=== PATIENT | female | born 1950 | race Caucasian/White ===

== ENCOUNTER 2018-08-09 16:35 | Outpatient (CLI) | payer BC, MEDICARE, SELFPAY ==
--- NOTE | 2018-08-09 16:10 | DI.RAD_ITS ---
SYMPTOM/DIAGNOSIS: FEVER, COUGH, R05, R50.9 PA AND LATERAL CHEST: Comparison is made with 10/03/16. Heart size and pulmonary vasculature are within normal limits. The lungs are clear and well expanded. No effusions or pneumothoraces are identified. The bones appear intact. IMPRESSION: No acute pulmonary process.
[2018-08-09 17:09] LABS: HCT 39.1 % (36.0-46.0); HGB 12.8 g/dL (12.0-15.5); Mean Corp. HGB Concentration 32.7 g/dL (32.0-36.0); Mean Corpuscular Hemoglobin 29.4 pg (27.0-33.0); Mean Corpuscular Volume 89.7 fL (80-95); Mean Platelet Volume 9.1 fL (8.0-11.0); Platelet Count 375 x1000/uL (130-400); RBC 4.36 m/cumm (4.00-5.20); RBC Distribution Width 13.2 % (11.7-14.6); White Blood Cell Count 9.44 k/cumm (4.4-10.8)
[2018-08-09 18:31] LABS: ALT 23 U/L (12-78); AST 12 U/L (15-37); Albumin 3.2 g/dL (3.4-5.0); Alkaline Phosphatase 115 U/L (46-116); Anion Gap 7.9 mmol/L (3-11); BUN 17 mg/dL (7-18); Bilirubin, Total 0.2 mg/dL (0.2-1.0); CO2 30.1 mmol/L (21.0-32.0); CREATININE 1.46 mg/dL (0.55-1.02); Calcium 8.6 mg/dL (8.5-10.1); Chloride 101 mmol/L (98-107); Estimated GFR 35.63 (mL/min/1.73m2); Glucose 91 mg/dL (70-100); Potassium 4.3 mmol/L (3.5-5.1); Sodium 139 mmol/L (136-145)
== END 2018-08-09 16:55 ==
PROVIDERS: PCP Nurse Practitioner; Visit Provider Nurse Practitioner
DX: R50.9 Fever, unspecified (principal); R05 Cough
CPT/HCPCS: 36415; 80053; 85027; 71046

== ENCOUNTER 2018-08-27 16:15 | Outpatient (CLI) | payer BC, MEDICARE, SELFPAY ==
[2018-08-27 18:11] LABS: Anion Gap 10.2 mmol/L (3-11); BUN 14 mg/dL (7-18); CO2 28.8 mmol/L (21.0-32.0); CREATININE 0.79 mg/dL (0.55-1.02); Calcium 8.9 mg/dL (8.5-10.1); Chloride 100 mmol/L (98-107); Glucose 87 mg/dL (70-100); Potassium 4.2 mmol/L (3.5-5.1); Sodium 139 mmol/L (136-145); TSH (W/Ref FT4) 1.17 uIU/mL (0.358-3.74)
== END 2018-08-27 16:35 ==
PROVIDERS: PCP Nurse Practitioner; Visit Provider Nurse Practitioner
DX: R53.81 Other malaise (principal); R53.83 Other fatigue; R79.9 Abnormal finding of blood chemistry, unspecified
CPT/HCPCS: 36415; 80048; 84443

== ENCOUNTER 2019-03-02 11:27 | Emergency (ER) | payer BC, MEDICARE, SELFPAY ==
[2019-03-02 11:30] VITALS: BP 154/82; PULSE 72; RESP 18; TEMP 37.1; O2SAT 97
[2019-03-02] MEDS: Lidocaine/Epinephri/Tetracaine Topical Gel 3 ML (12:16)
--- NOTE | 2019-03-02 13:07 | W.ED.GENAD ---
Discharge Plan Disposition Patient Disposition: HOME Discharge Details Chief Complaint: Laceration Clinical Impression: Laceration of left index finger Primary Care Provider: Lanny Rubio ED Provider: Rashaad Nguyễn Home Meds and New Rx's Prescriptions: Continued Coral Calcium 250-200-125 mg-unit-mg capsule 2 cap PO DAILY RF: 0 cetirizine [Zyrtec] 10 MG tablet 10 mg PO q3d RF: 0 cholecalciferol (vitamin D3) 2,000 UNIT tablet 2,000 unit PO DAILY RF: 0 Discharge Instructions Instructions: Finger Laceration (ED) Additional Instructions: Keep laceration site dry for 24 hours. Observe for signs of infection as discussed including redness, fever, chills, pain, discharge. Return to the emergency department in 12 to 14 days for suture removal. Discharge Data Discharge Date/Time-TO BE ENTERED AT DEPARTURE: 03/02/19 13:27 Discharge Physician: Rashaad Nguyễn Medical Decision Making 1 mL 1% lidocaine without epi local injection left middle finger, wound cleansed then closed with three 4-0 sutures simple of interrupted dressing applied HPI This a.m., patient accidentally lacerated her left middle finger on a clean kitchen knife. Here for wound management. Minimal bleeding, no numbness, no weakness, no additional injuries. Tetanus up-to-date. General Date/Time Provider Initiated Documentation: 03/02/19 13:11. Related Data Home Medications Medication Instructions Recorded Confirmed cetirizine [Zyrtec] 10 mg PO q3d 07/16/13 03/02/19 cholecalciferol (vitamin D3) 2,000 unit PO DAILY 06/29/17 03/02/19 calcium carb-vit D3-magnesium 250 2 cap PO DAILY cap 08/09/18 03/02/19 mg-200 unit-125 mg capsule Allergies Allergy/AdvReac Type Severity Reaction Status Date / Time nickel AdvReac Severe unknown Verified 03/02/19 11:33 acetaminophen [From Percocet] AdvReac Unknown nightmares/ Verified 03/02/19 11:33 nausea epinephrine AdvReac Unknown heart Verified 03/02/19 11:33 racing/high anxiety meperidine HCl [From Demerol] AdvReac Unknown felt she Verified 03/02/19 11:33 was sinking oxycodone HCl [From Percocet] AdvReac Unknown nightmares/ Verified 03/02/19 11:33 nausea General Stated Complaint: Laceration RADHA: 4 Review of Systems Constitutional Denies chills, Denies fatigue, Denies fever(s) and Denies lethargy Eyes Denies loss of vision Musculoskeletal Denies back pain, Denies muscle weakness and Denies numbness Integumentary/Breasts Denies rash Neurologic Denies focal weakness, Denies loss of vision and Denies numbness Endocrine Denies fatigue Hematologic/Lymphatic Denies easy bruising PFSH Social History Smoking/Tobacco Use Status: Former Tobacco Use Alcohol Intake: current Alcohol Intake frequency: holidays/special occasions only Substance use type: does not use Seatbelt use: always 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 No active bleeding. Neuro General: alert, awake and oriented x3 Speech: speech normal Gait: normal gait Extrem General: normal to inspection Course Vital Signs Temperature 37.1 C 03/02/19 11:30 Pulse 72 03/02/19 11:30 Respiratory Rate 18 03/02/19 11:30 Blood Pressure 154/82 H 03/02/19 11:30 Pulse Oximetry 97 03/02/19 11:30 Temperature 37.1 C 03/02/19 11:30 Temperature Source Skin 03/02/19 11:30 Pulse 72 03/02/19 11:30 Respiratory Rate 18 03/02/19 11:30 Respiratory Effort 03/02/19 12:46 Blood Pressure 154/82 H 03/02/19 11:30 Blood Pressure Position Sitting 03/02/19 11:30 Pulse Oximetry 97 03/02/19 11:30 Oxygen Delivery Method Room Air 03/02/19 11:30 Oxygen Flow Rate 0 03/02/19 11:30 Pain Level 0 03/02/19 11:30
== END 2019-03-02 13:27 | disposition home or self-care (01) ==
PROVIDERS: Emergency Provider Physician Assistant Medical; PCP Nurse Practitioner
DX: S61.511A Laceration without foreign body of right wrist, initial encounter (principal); W26.0XXA Contact with knife, initial encounter
CPT/HCPCS: 12001

== ENCOUNTER 2019-03-14 11:55 | Emergency (ER) | payer BC, MEDICARE, SELFPAY ==
[2019-03-14 12:06] VITALS: BP 165/90; PULSE 72; RESP 18; TEMP 36; O2SAT 98
--- NOTE | 2019-03-14 12:09 | W.ED.GENAD ---
Discharge Plan Disposition Patient Disposition: HOME Condition: Improving Discharge Details Chief Complaint: SutureRem Clinical Impression: Visit for suture removal Primary Care Provider: Lanny Rubio ED Provider: Zion Layne Home Meds and New Rx's Prescriptions: Continued Coral Calcium 250-200-125 mg-unit-mg capsule 2 cap PO DAILY RF: 0 cetirizine [Zyrtec] 10 MG tablet 10 mg PO q3d RF: 0 cholecalciferol (vitamin D3) 2,000 UNIT tablet 2,000 unit PO DAILY RF: 0 Discharge Instructions Additional Instructions: Gentle soap and water cleanse once daily, pat dry and let air dry. Remove Steri-Strips in 5 to 7 days time. Return if you develop a fever, discharge from the wound, or any other acute concerns Medical Decision Making Pleasant and delightful 68-year-old female presents for removal of left long finger sutures. This was performed with out complication, Steri-Strips were placed. Patient stable for discharge to home. She understands return precautions. HPI General Mode of arrival: ambulatory. Date/Time Provider Initiated Documentation: 03/14/19 11:56. Limitations to Documentation: no limitations. Information obtained by: patient. History of Present Illness 68 year old F presents to the emergency department with the chief complaint of Suture removal, no complaint, and is localized to the left and upper extremity. Patient notes no other symptoms.. Patient did receive the following treatments prior to arrival, none Related Data Home Medications Medication Instructions Recorded Confirmed cetirizine [Zyrtec] 10 mg PO q3d 07/16/13 03/02/19 cholecalciferol (vitamin D3) 2,000 unit PO DAILY 06/29/17 03/02/19 calcium carb-vit D3-magnesium 250 2 cap PO DAILY cap 08/09/18 03/02/19 mg-200 unit-125 mg capsule Allergies Allergy/AdvReac Type Severity Reaction Status Date / Time nickel AdvReac Severe unknown Verified 03/02/19 11:33 acetaminophen [From Percocet] AdvReac Unknown nightmares/ Verified 03/02/19 11:33 nausea epinephrine AdvReac Unknown heart Verified 03/02/19 11:33 racing/high anxiety meperidine HCl [From Demerol] AdvReac Unknown felt she Verified 03/02/19 11:33 was sinking oxycodone HCl [From Percocet] AdvReac Unknown nightmares/ Verified 03/02/19 11:33 nausea General Stated Complaint: SutureRem RADHA: 5 Review of Systems Review of Systems No fever no discharge no redness PFSH Surgical History Biopsy of breast (09/26/13) Excision, Skin Mass L Femoral Hernia Repair R breast lumpectomy x2 (fibrocystic) Trigger Finger release Vaginal hysterectomy (01/04/17) Social History Smoking/Tobacco Use Status: Former Tobacco Use Alcohol Intake: current Alcohol Intake frequency: holidays/special occasions only Substance use type: does not use Seatbelt use: always 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 Pleasant, well groomed, interactive. HEAD: Normocephalic, atraumatic EXT: Full ROM, no edema, no rash. Left long finger with [address] over healing wound. Neuro: Grossly normal neurologic exam, conversant, interactive. Psych: Speech fluent, thoughts congruent, affect normal Course Respiratory Effort Non-Labored 03/14/19 12:03
== END 2019-03-14 12:14 | disposition home or self-care (01) ==
PROVIDERS: Emergency Provider Emergency Medicine; PCP Nurse Practitioner
DX: Z48.02 Encounter for removal of sutures (principal); S61.511D Laceration without foreign body of right wrist, subsequent encounter; W26.0XXD Contact with knife, subsequent encounter

== ENCOUNTER 2019-04-08 06:12 | Day surgery (SDC) | payer BC, MEDICARE, SELFPAY ==
[2019-04-08 06:15] VITALS: BP 130/69; PULSE 76; RESP 18; TEMP 36.6; O2SAT 96
[2019-04-08] MEDS: Lactated Ringers 1,000 ML 80 ML IV ×2 (06:42→07:55)
--- NOTE | 2019-04-08 07:50 | BOWEL_PTH ---
PATIENT: Richelle Huerta LOC: JOB U#:[id number] AGE/SX: 68/F ROOM: RE04/08/[address]: Azeb Ernst MD : 1950 BED: DIS: 04/08/2019 SPEC #: [id number] RECD: 04/08/19 12:40 STATUS: JOSE ARMANDO REQ #: [id number] ANTONIO: 04/08/19 07:[address]: Azeb Ernst DEPT: Surgical Specimen RECD BY: Lilly Escobar ENTERED: 04/08/19 12:40 SP TYPE: Bowel OTHR DR: Lanny Rubio APRN Tissues: 1 - BIOPSY BOWEL Procedures: GROSS AND MICRO LEVEL 4 Comments: [id number]
--- NOTE | 2019-04-08 08:06 | W.PM.DSUDISC ---
Discharge Plan Disposition Patient Disposition: HOME Condition: Good Discharge Details Attending Provider: Azeb Ernst Primary Care Provider: Lanny Rubio Home Meds and New Rx's Prescriptions: Continued cetirizine [Zyrtec] 10 MG tablet 10 mg PO q3d RF: 0 Discontinued polyethylene glycol 3350 17 gram/dose powder 238 g PO ONCE Qty: 238 RF: 0 bisacodyl 5 mg tablet,delayed release (DR/EC) 5 mg PO ONCE Qty: 4 RF: 0 Discharge Instructions Additional Instructions: Your colonoscopy showed internal hemorrhoids, which is the likely cause of bleeding. It is okay to use an OTC medication like Preparation H if they are bothersome. Mild diverticulosis was present. Make sure to take in a high fiber diet. Routine biopsies were done, my office will send a letter with results. It is anticipated they will be normal. Activity:: Activity as Tolerated Diet:: As Tolerated Discharge Orders Discharge Orders: Discharge Order (Routine); Ordered 04/08/19 Ordered By: Azeb Ernst DS: Diagnosis Discharge Diagnosis (1) Diverticulosis: Start date: 04/08/19 Start time: 08:07 Status: Acute (2) Internal hemorrhoid: Start date: 04/08/19 Start time: 08:07 Status: Acute
[2019-04-08 08:30] VITALS: BP 131/77; PULSE 76; RESP 16; TEMP 36; O2SAT 100
--- NOTE | 2019-04-08 11:12 | COLE_ITS ---
DATE OF PROCEDURE: April 08, 2019 PREOPERATIVE DIAGNOSIS: Rectal bleeding and change in bowel habits.
== END 2019-04-08 09:10 | disposition home or self-care (01) ==
PROVIDERS: PCP Nurse Practitioner; Visit Provider Surgery
PROC: 0DJD8ZZ Inspection of Lower Intestinal Tract, Via Natural or Artificial Opening Endoscopic (ICD-10-PCS; CPT 45378; principal; 2019-04-08 07:30)
DX: K62.5 Hemorrhage of anus and rectum (principal); R19.4 Change in bowel habit; K52.9 Noninfective gastroenteritis and colitis, unspecified; K57.30 Diverticulosis of large intestine without perforation or abscess without bleeding; K64.0 First degree hemorrhoids; K63.89 Other specified diseases of intestine
CPT/HCPCS: 45380; 88305

== ENCOUNTER 2019-04-09 10:20 | Outpatient (CLI) | payer BC, MEDICARE, SELFPAY ==
[2019-04-09 10:58] LABS: HCT 41.3 % (36.0-46.0); HGB 13.6 g/dL (12.0-15.5); Mean Corp. HGB Concentration 32.9 g/dL (32.0-36.0); Mean Corpuscular Hemoglobin 29.2 pg (27.0-33.0); Mean Corpuscular Volume 88.8 fL (80-95); Mean Platelet Volume 9.5 fL (8.0-11.0); Platelet Count 289 x1000/uL (130-400); RBC 4.65 m/cumm (4.00-5.20); RBC Distribution Width 13.1 % (11.7-14.6); White Blood Cell Count 3.89 k/cumm (4.4-10.8)
[2019-04-09 14:59] LABS: ALT 24 U/L (12-78); AST 12 U/L (15-37); Albumin 3.6 g/dL (3.4-5.0); Alkaline Phosphatase 80 U/L (46-116); Anion Gap 9.8 mmol/L (3-11); BUN 13 mg/dL (7-18); Bilirubin, Total 0.3 mg/dL (0.2-1.0); CO2 26.2 mmol/L (21.0-32.0); CREATININE 0.66 mg/dL (0.55-1.02); Calcium 8.5 mg/dL (8.5-10.1); Calculated LDL 156 mg/dL; Chloride 104 mmol/L (98-107); Cholesterol 231 mg/dL (50-200); Glucose 87 mg/dL (70-100); HDL Cholesterol 64 mg/dL (40-60); Potassium 4.2 mmol/L (3.5-5.1); Sodium 140 mmol/L (136-145); Total Protein 6.7 g/dL (6.4-8.2); Triglyceride 58 mg/dL (30-150)
== END 2019-04-09 10:40 ==
PROVIDERS: PCP Nurse Practitioner; Visit Provider Nurse Practitioner
DX: E78.5 Hyperlipidemia, unspecified (principal); K62.5 Hemorrhage of anus and rectum
CPT/HCPCS: 36415; 80053; 80061; 83721; 85027

== ENCOUNTER 2019-04-12 13:47 | Outpatient (CLI) | payer BC, MEDICARE, SELFPAY ==
[2019-04-15 23:14] LABS: Saccharomyces cerevisiae IgA <10.0 U; Saccharomyces cervisiae IgG 14.6 U
== END 2019-04-12 14:07 ==
PROVIDERS: PCP Nurse Practitioner; Visit Provider Surgery
DX: K62.5 Hemorrhage of anus and rectum (principal)
CPT/HCPCS: 36415; 86255; 86671

== ENCOUNTER 2020-07-03 03:28 | Outpatient (CLI) | payer BC, MEDICARE, SELFPAY ==
[2020-07-03 08:46] LABS: HCT 42.5 % (36.0-46.0); HGB 13.8 g/dL (11.2-15.7); MCH 29.4 pg (27.0-33.0); MCHC 32.5 % (32.0-36.0); MCV 90.6 fL (80-95); MPV 9.3 fL (8.0-11.0); Platelet Count 274 10^3/uL (130-400); RBC 4.69 10^6/uL (3.93-5.22); RDW-SD 42.7 fL; WBC 4.35 10^3/uL (4.4-10.8)
[2020-07-03 09:43] LABS: ALT 23 U/L (14-59); AST 14 U/L (15-37); Albumin 3.7 g/dL (3.4-5.0); Alkaline Phosphatase 85 U/L (46-116); Anion Gap 6.6 mmol/L (3-11); BUN 14 mg/dL (7-18); Bilirubin, Total 0.3 mg/dL (0.2-1.0); CO2 32.4 mmol/L (21.0-32.0); CREATININE 0.73 mg/dL (0.55-1.02); Calcium 8.7 mg/dL (8.5-10.1); Calculated LDL 189 mg/dL (<100); Chloride 104 mmol/L (98-107); Cholesterol 275 mg/dL (<200); HDL Cholesterol 73 mg/dL (40-60); Potassium 4.9 mmol/L (3.5-5.1); Sodium 143 mmol/L (136-145); Total Protein 6.8 g/dL (6.4-8.2); Triglyceride 66 mg/dL (<150)
[2020-07-03 09:50] LABS: Glucose 92 mg/dL (74-106)
== END 2020-07-03 03:48 ==
PROVIDERS: PCP Nurse Practitioner; Visit Provider Nurse Practitioner
DX: E78.5 Hyperlipidemia, unspecified (principal); R10.32 Left lower quadrant pain; G89.29 Other chronic pain
CPT/HCPCS: 36415; 80053; 80061; 85027

== ENCOUNTER 2020-09-04 01:32 | Outpatient (CLI) | payer OTHER, SELFPAY ==
--- NOTE | 2020-09-04 07:30 | DI.RAD_ITS ---
EXAM: XR HIP LT COMPLETE AP PELVIS INDICATION: R/o fx, LT BUTTOCK PAIN, CHRONIC GROIN PAIN, M79.18,R10.32. COMPARISON: CR XR CHEST 2V PA LATERAL from 08/09/2018 TECHNIQUE: 2D digital imaging was performed. FINDINGS: The hip joint spaces are well maintained. There is bilateral mild to moderate acetabular spurring, l eft greater than right. There is minimal spurring at the margin of the left femoral head. There are mild degenerative changes of the sacroiliac joints. IMPRESSION: Mild to moderate degenerative changes. DATA REPOSITORY: RADIATION DOSE DELIVERED:
== END 2020-09-04 01:52 ==
PROVIDERS: PCP Nurse Practitioner; Visit Provider Nurse Practitioner Family
DX: M79.18 Myalgia, other site (principal); R10.32 Left lower quadrant pain; G89.29 Other chronic pain; M16.12 Unilateral primary osteoarthritis, left hip; M46.1 Sacroiliitis, not elsewhere classified
CPT/HCPCS: 73502

== ENCOUNTER 2020-11-18 01:11 | Outpatient (CLI) | payer OTHER, SELFPAY ==
--- NOTE | 2020-11-18 14:30 | DI.MRI_ITS ---
EXAM: MR LUMBAR SPINE WO CLINICAL HISTORY: L leg gives out, buttock pain, LLQ PAIN,groin pain,M79.18,R10.32. TECHNIQUE: Multiplanar multisequence MRI of the Lumbar spine was performed. COMPARISON: CR XR HIP LT COMPLETE AP PELVIS from 09/04/2020 FINDINGS: Five lumbar vertebrae are presumed. Conus medullaris is at normal level. There is no evidence of conus mass nor subjacent clumping of in trathecal nerve roots to suggest arachnoiditis. The distal thecal sac appears unremarkable.There is no evidence of Tarlov intrasacral cysts nor other significant findings within the sacral canal Bones:There are no fractures nor ominous osseous lesions in the lumbar vertebral bodies and visualize d sacrum. With respect to the individual levels... We note that the disc material at each level in the lumbar spine is remarkably well preserved in heig ht and hydration signal for this patient's age group. T11-T12: There are Modic type 1 sub endplate marrow edema changes anteriorly at this level. There is mild annular bulging but no distinct focal disc herniation at this level. No evidence of central ca nal stenosis nor significant foraminal stenosis at this level and no facet arthropathy. T12-L1: Unremarkable L1-2: Normal disc height and signal. No disc herniation nor central canal stenosis.No foraminal steno sis L2-3: Normal disc height. No disc herniation nor central canal stenosis.No foraminal stenosis.No face t arthropathy. L3-4: Normal disc height. No disc herniation or central canal stenosis.No foraminal stenosis.No face t arthropathy. L4-5: Normal disc height and signal. No disc herniation or central canal stenosis. No foraminal anand nosis. No significant facet arthropathy. L5-S1: Normal disc height and signal. No disc herniation or central spinal canal stenosis nor forami nal stenosis. However, there is some degenerative change noted in the right facet joint at this leve l. Left facet joint appears relatively unremarkable. Soft tissues: paraspinal soft tissues appear unremarkable.There is a 5 millimeter cyst incidentally noted in the right kidney. IMPRESSION: 1. There is remarkable preservation of disc height and signal for this age group. 2. There is no significant disc herniation, central spinal canal stenosis, nor foraminal stenosis. N o listhesis. 3. There are Modic type 1 sub endplate marrow edema changes at the anterior aspect of the T11-T12 dis c space with anterior osseous lipping at this level. However, there is no disc herniation at this le sly evident nor canal stenosis. 4. There is some degenerative change in the right facet joint at L5-S1 level. Only mild degenerativ e change in the left facet joint at this level. There is no facet arthropathy at the other levels. DATA REPOSITORY:
== END 2020-11-18 01:12 ==
LOC: DI 01:12
PROVIDERS: PCP Nurse Practitioner; Visit Provider Nurse Practitioner
DX: R10.32 Left lower quadrant pain (principal); M79.18 Myalgia, other site; M48.061 Spinal stenosis, lumbar region without neurogenic claudication; M43.07 Spondylolysis, lumbosacral region
CPT/HCPCS: 72148

== ENCOUNTER → 2020-12-08 01:14 | Outpatient (CLI) | payer OTHER, BC, MEDICARE, SELFPAY ==
--- NOTE | 2020-12-08 08:55 | DI.MRI_ITS ---
EXAM: MR LOWER JOINT LT WO CLINICAL HISTORY: PAIN LT HIP,GROIN,BUTTOCK,M25.552,R10.32,M79.18. TECHNIQUE: Multiplanar multisequence MRI was performed. COMPARISON: CR XR HIP LT COMPLETE AP PELVIS from 09/04/2020 FINDINGS: MR examination of the hip was performed according to the usual protocol except for noted large field of view requested. Large [id number]-jm-esyc does decrease resolution somewhat. No significant abnormality of the intrapelvic soft tissues, visualized bowel and urinary bladder appe ar intact. No gross adenopathy in the region surveyed. Right hip shows normal bony and soft tissue signal, no joint effusion, no ligamentous or tendinous ab normality. On the left, there is a small hip joint effusion. The labrum appears grossly unremarkable. Femoral head shows minimally abnormal signal in the subchondral portions of the bone on the T2 fat sat images . There is abnormal signal also seen in the superior acetabulum with areas of apparent cyst formatio n. Small ganglion cyst may also be present anteriorly. No gross ligamentous or tendinous abnormalit y seen. The bony cortex is not ideally visualized, cortical disruption of the superior acetabulum not exclude d, mass lesion not excluded. Additional correlation with CT of the hip suggested. IMPRESSION: Somewhat suboptimal image quality limits this examination, there are bony changes involving superior acetabulum and femoral head suggesting degenerative changes with some subchondral cyst formation. Fr acture or mass not entirely excluded on the basis of this examination, correlation with left hip CT r ecommended. DATA REPOSITORY:
== END ==
PROVIDERS: PCP Nurse Practitioner; Visit Provider Nurse Practitioner
DX: M25.552 Pain in left hip (principal); R10.32 Left lower quadrant pain; M79.18 Myalgia, other site
CPT/HCPCS: 73721

== ENCOUNTER 2021-05-21 10:34 | Outpatient (CLI) | payer BC, MEDICARE, SELFPAY ==
--- NOTE | 2021-05-21 10:30 | DI.RAD_ITS ---
Exam(s) XR SHOULDER LT COMPLETE 2+V EXAM: XR SHOULDER LT COMPLETE 2+V CLINICAL HISTORY: s/p fall TECHNIQUE: COMPARISON: No exams were available for comparison FINDINGS: Two views were obtained. There appears to be mild narrowing of the cartilaginous joint space of the glenohumeral joint. There is mild marginal osteophyte formation of the glenoid and humeral head and there are moderate hypertrophic degenerative changes at the AC joint as well. No other significant a bnormality seen. IMPRESSION: RADIATION DOSE DELIVERED: Total DLP
== END 2021-05-21 10:35 | disposition home or self-care (01) ==
LOC: DIORS 10:35
PROVIDERS: PCP Nurse Practitioner; Referring Provider Nurse Practitioner; Visit Provider Physician Assistant Surgical
DX: M25.512 Pain in left shoulder (principal); W19.XXXA Unspecified fall, initial encounter; M19.012 Primary osteoarthritis, left shoulder
CPT/HCPCS: 73030

== ENCOUNTER 2021-07-16 02:07 | Outpatient (CLI) | payer BC, MEDICARE, SELFPAY ==
[2021-07-16 08:00] LABS: HCT 41.2 % (36.0-46.0); HGB 13.2 g/dL (11.2-15.7); MCH 29.3 pg (27.0-33.0); MCV 91.6 fL (80-95); MPV 9.2 fL (8.0-11.0); Platelet Count 300 10^3/uL (130-400); RDW 12.7 % (11.7-14.6); RDW-SD 42.4 fL; WBC 4.41 10^3/uL (4.4-10.8)
[2021-07-16 09:10] LABS: ALT 23 U/L (14-59); AST 12 U/L (15-37); Alkaline Phosphatase 80 U/L (46-116); Anion Gap 6.1 mmol/L (3-11); BUN 22 mg/dL (7-18); Bilirubin, Total 0.3 mg/dL (0.2-1.0); CO2 31.9 mmol/L (21.0-32.0); CREATININE 0.8 mg/dL (0.55-1.02); Calcium 8.9 mg/dL (8.5-10.1); Calculated LDL 181 mg/dL (<100); Chloride 103 mmol/L (98-107); Cholesterol 263 mg/dL (<200); Glucose 90 mg/dL (74-106); HDL Cholesterol 68 mg/dL (40-60); Potassium 4.9 mmol/L (3.5-5.1); Sodium 141 mmol/L (136-145); Triglyceride 71 mg/dL (<150)
[2021-07-16 09:17] LABS: Albumin 3.7 g/dL (3.4-5.0)
== END 2021-07-16 02:08 | disposition home or self-care (01) ==
LOC: LBO 02:07
PROVIDERS: PCP Nurse Practitioner; Visit Provider Nurse Practitioner
DX: E78.5 Hyperlipidemia, unspecified (principal)
CPT/HCPCS: 36415; 80053; 80061; 85027

== ENCOUNTER 2021-09-06 01:32 | Outpatient (CLI) | payer MEDICARE, OTHER, SELFPAY ==
--- NOTE | 2021-09-06 08:45 | DI.MRI_ITS ---
Exam(s) MR UPPER JOINT LT WO EXAM: MR UPPER JOINT LT WO CLINICAL HISTORY: LT SHOULDER PAIN, INJURY,M25.512 TECHNIQUE: Multiplanar multisequence MRI of the shoulder was performed. COMPARISON: CR XR SHOULDER LT COMPLETE 2+V from 05/21/2021 FINDINGS: MARROW:There is no evidence of fracture, Hill-Sachs deformity, bony Bankart lesion, nor ominous osseo us lesions. ROTATOR CUFF MECHANISM: AC JOINT/ACROMIUM: Minimal degenerative changes at the AC joint. No downgoing osteophytes. No promi nent impingement at this level. The undersurface of the acromion is flat. There is no undersurface impingement hook.. There is no evidence of os acromiale. Supraspinatus: Tendinitis signal but no full-thickness tear. No retraction. No muscle atrophy. Infraspinatus: Intact. No evidence of tear nor muscle atrophy. Teres Minor: Intact. No evidence of tear nor muscle atrophy. Subscapularis/anterior cuff: Intact. No tear nor atrophy. BICEPS TENDON: Exhibits normal position within the intertubercular groove but some fluid within the t endon sheath LABRUM: Mild increased signal is seen in the superior labrum posterior to the biceps insertion site. May indicate an element of SLAP tear although there is no invagination of fluid signal between the l abrum and osseous glenoid. There is also increased intrasubstance signal within the posterior labrum . Also within the anterior labrum. GLENOHUMERAL JOINT: Moderate-sized joint effusion with synovial thickening. No loose intra-articular body evident. Osteophyte on the inferior articular surface of the humeral head. No degenerative cy sts in the osseous glenoid but there is some mild thinning of the cartilage. No large chondral defec ts. No evidence of capsular tear. The inferior glenohumeral ligament is intact. QUADRILATERAL SPACE: No evidence of mass in the region of the axillary nerve and dorsal circumflex hu meral vessels. Visualized triceps muscle at this level appears unremarkable. IMPRESSION: 1. There is mild increased signal evident within the supraspinatus tendon but no tear nor muscle atro phy. There is a tiny amount of fluid in the subacromial bursa, probably an element of bursitis. Oth er 3 muscles of the rotator cuff mechanism appear unremarkable. There is no evidence of muscle atrop hy. 2. Moderate degenerative changes in the glenohumeral joint. Moderate-sized joint effusion with some synovial thickening. No obvious loose intra-articular bodies. 3. Subtle labral tearing evident. Biceps tendon is intact and nondisplaced. Mild amount of fluid in its tendon sheath is most probably continuity of the glenohumeral joint effusion. DATA REPOSITORY:
== END 2021-09-06 01:52 ==
PROVIDERS: PCP Nurse Practitioner; Visit Provider Student in an Organized Health Care Education/Training Program
DX: M25.512 Pain in left shoulder (principal); M19.012 Primary osteoarthritis, left shoulder; M25.412 Effusion, left shoulder
CPT/HCPCS: 73221

== ENCOUNTER → 2021-10-11 13:48 | Outpatient (BNVA) | payer MEDICARE, OTHER, SELFPAY | PROVIDERS: PCP Nurse Practitioner; Referring Provider Nurse Practitioner; Visit Provider Student in an Organized Health Care Education/Training Program | DX: S46.012D Strain of muscle(s) and tendon(s) of the rotator cuff of left shoulder, subsequent encounter (principal); M16.12 Unilateral primary osteoarthritis, left hip; X58.XXXD Exposure to other specified factors, subsequent encounter | CPT/HCPCS: 20610; 99213; J1040 ==

== ENCOUNTER → 2021-11-08 12:55 | Outpatient (BNVA) | payer MEDICARE, OTHER, SELFPAY | PROVIDERS: PCP Nurse Practitioner; Visit Provider Student in an Organized Health Care Education/Training Program | DX: M16.12 Unilateral primary osteoarthritis, left hip (principal); W19.XXXA Unspecified fall, initial encounter | CPT/HCPCS: 99214 ==

== ENCOUNTER 2021-12-09 14:28 | Outpatient (CLI) | payer MEDICARE, OTHER, SELFPAY ==
--- NOTE | 2021-12-09 14:15 | DI.RAD_ITS ---
Exam(s) XR HIP LT COMPLETE AP PELVIS EXAM: XR HIP LT COMPLETE AP PELVIS CLINICAL HISTORY: preop. TECHNIQUE: 2D digital imaging was performed. COMPARISON: CR XR HIP LT COMPLETE AP PELVIS from 09/04/2020 FINDINGS: Two views There is no evidence of pelvic nor hip fracture. There is mild left hip joint space narrowing. Righ t hip joint space appears unremarkable. On the additional lateral view of the left hip there is a ti ny femoral head spur again noted, unchanged. Bone density is normal. No osseous lesions. Visualize d sacroiliac joints unremarkable. IMPRESSION: DATA REPOSITORY: RADIATION DOSE DELIVERED:
== END 2021-12-09 14:29 | disposition home or self-care (01) ==
LOC: DIORS 14:28
PROVIDERS: PCP Nurse Practitioner; Referring Provider Nurse Practitioner; Visit Provider Physician Assistant Surgical
DX: M16.12 Unilateral primary osteoarthritis, left hip (principal); M76.892 Other specified enthesopathies of left lower limb, excluding foot; Z01.818 Encounter for other preprocedural examination
CPT/HCPCS: 73502

== ENCOUNTER 2021-12-20 03:18 | Outpatient (CLI) | payer MEDICARE, OTHER, SELFPAY ==
[2021-12-20 10:14] LABS: HCT 42.4 % (36.0-46.0); HGB 13.5 g/dL (11.2-15.7); MCH 28.9 pg (27.0-33.0); MCHC 31.8 % (32.0-36.0); MCV 90.8 fL (80-95); MPV 9.1 fL (8.0-11.0); Platelet Count 304 10^3/uL (130-400); RBC 4.67 10^6/uL (3.93-5.22); RDW 13.3 % (11.7-14.6); RDW-SD 44.6 fL; WBC 4.74 10^3/uL (4.4-10.8)
[2021-12-20 12:10] LABS: Anion Gap 8.3 mmol/L (3-11); BUN 17 mg/dL (7-18); CO2 29.7 mmol/L (21.0-32.0); CREATININE 0.8 mg/dL (0.55-1.02); Calcium 8.8 mg/dL (8.5-10.1); Chloride 104 mmol/L (98-107); Glucose 76 mg/dL (74-106); Sodium 142 mmol/L (136-145)
[2021-12-20 12:40] LABS: Source Nasal/Nares
[2021-12-20 16:06] LABS: COVID-19 PCR Negative (Negative)
== END 2021-12-20 03:19 | disposition home or self-care (01) ==
LOC: LBO 03:18
PROVIDERS: PCP Nurse Practitioner; Visit Provider Student in an Organized Health Care Education/Training Program
DX: M25.552 Pain in left hip (principal); M16.12 Unilateral primary osteoarthritis, left hip; Z20.822 Contact with and (suspected) exposure to COVID-19; Z01.818 Encounter for other preprocedural examination; Z01.812 Encounter for preprocedural laboratory examination
CPT/HCPCS: 36415; 80048; 85027; 86850; 86900; 86901; 87635; U0005

== ENCOUNTER 2021-12-21 05:59 | Day surgery (SDC) | payer MEDICARE, OTHER, SELFPAY ==
[2021-12-21] VITALS (8 sets, daily range): BP systolic 125–157; BP diastolic 61–80; PULSE 52–75; RESP 12–17; TEMP 36.3–37.1; O2SAT 93–100; BMI 28.5
--- NOTE | 2021-12-21 06:26 | W.PM.DSUDISC ---
Discharge Plan Disposition Patient Disposition: HOME Condition: Stable Discharge Details Reason For Visit: Left RISSA Attending Provider: Casey Huerta Primary Care Provider: Lanny Rubio Home Meds and New Rx's Prescriptions: New aspirin 81 mg tablet,delayed release (DR/EC) 81 mg PO BID Qty: 60 0RF ibuprofen 600 mg tablet 600 mg PO TID Qty: 90 0RF acetaminophen 500 mg capsule 1,000 mg PO Q8H PRN PRNQty: 90 0RF tramadol 50 mg tablet 50 mg PO Q6H PRNQty: 4 0RF pantoprazole [Protonix] 40 mg tablet,delayed release (DR/EC) 40 mg PO DAILY Qty: 30 0RF Continued cholecalciferol (vitamin D3) 50 mcg (2,000 unit) capsule 50 mcg PO DAILY 0RF ascorbic acid (vitamin C) 500 mg capsule, extended release 500 mg PO DAILY 0RF omega-3 fatty acids [Fish Oil Concentrate] 1,000 mg capsule 1,000 mg PO DAILY 0RF turmeric root extract 500 mg capsule 500 mg PO DAILY 0RF Discontinued Tylenol Extra Strength 500 mg powder in packet 500 mg PO BID PRN0RF ibuprofen 200 mg capsule 400 mg PO ONCE PRN0RF Discharge Instructions Additional Instructions: Total Hip Discharge Instructions Activity: The most important activity is to walk. You should try to take short walks a few times a day. You have no restrictions on movement or positioning, but do not try to force what you do. You will find some stiffness and weakness with hip flexion (lifting your knee). Do not try to strengthen this too early, continue to practice walking and stairs and this will come. - Outpatient physical therapy can be helpful to help return you to a normal gait and improve your flexibility and strength. This can start around 2 weeks. For some patients, it?s not necessary. Usually this is determined at the time of discharge or at the first post-operative visit. - You should wear the MICHAEL hose on both legs for 2 weeks. Dressing: Keep the surgical dressing in place for at least one week. After the first week it may be removed and replace with light gauze and tape or nothing. It may get wet after 3 days but avoid soaking the dressing. If it gets wet, just lightly pat dry. It is important to always keep some gauze between skin folds, especially when you are sitting. Spend some time with the wound exposed when you are lying flat as the incision does wrinkle onto itself. Medications: - You should take Tylenol and an anti-inflammatory, ibuprofen, as your primary pain control medications. - You have been prescribed a stronger pain medication, 4-50 mg tablets of tramadol, for breakthrough pain, take as needed. As discussed at your preoperative visit, if you run out and require more for pain control, please do not hesitate to contact the office for a refill. - You have also been prescribed a stomach acid reduction agent, Pantoprozole, to help reduce stomach acid and reflux. - You will be taking Aspirin 81mg twice a day for DVT prevention unless instructed otherwise. - If you have constipation you should take Colace or Miralax (both [id number]). It takes most people 3-4 days to have a bowel movement. Follow-up: 2 weeks If you have any acute concerns or questions, please do not hesitate to contact the office at [phone]. You may contact Dr. Huerta with any questions after hours through the hospital at [phone] or on his cell phone at [phone]. Referrals: Casey Huerta MD [ [facility] STAFF PHYSICIAN] - Equipment/Supplies: Walker Activity:: Activity as Tolerated Remove Dressings/Wound Care:: Do Not Remove Shower/Bathe:: 72 hours Diet:: As Tolerated Discharge Orders Discharge Orders: Discharge Order (Routine); Ordered 12/21/21 Ordered By: Monica Fried DS: Diagnosis Discharge Diagnosis (1) Degenerative joint disease of left hip: Status: Acute
--- NOTE | 2021-12-21 06:56 | W.ANESPRE ---
General Info Date of Service Date Performed: 12/21/21 Height: 5 ft 2 in Weight: 70.8 kg Body Mass Index (BMI): 28.5 Surgical Procedure: Operation Date: 12/21/21 07:50 Proposed Procedure Side Surgeon p Hip Total Hip Anterior Left Casey Huerta MD Meds Allergies and Home Medications Allergies Allergy/AdvReac Type Severity Reaction Status Date / Time scopolamine Allergy Verified 12/21/21 06:23 nickel AdvReac Severe unknown Verified 12/20/21 14:25 epinephrine AdvReac Unknown heart Verified 12/20/21 14:25 racing/high anxiety meperidine HCl [From Demerol] AdvReac Unknown felt she Verified 12/20/21 14:25 was sinking oxycodone HCl [From Percocet] AdvReac Unknown nightmares/ Verified 12/20/21 14:25 nausea Home Medication Medication Instructions Recorded ascorbic acid (vitamin C) 500 mg 500 mg PO DAILY 04/21/20 capsule,extended release cholecalciferol (vitamin D3) 50 50 mcg PO DAILY 04/21/20 mcg (2,000 unit) capsule omega-3 fatty acids 1,000 mg 1,000 mg PO DAILY 04/21/20 capsule (Fish Oil Concentrate) turmeric root extract 500 mg 500 mg PO DAILY 10/02/20 capsule acetaminophen 500 mg capsule 1,000 mg PO Q8H PRN PRN #90 cap 12/21/21 aspirin 81 mg tablet,delayed 81 mg PO BID #60 tab 12/21/21 release ibuprofen 600 mg tablet 600 mg PO TID #90 tab 12/21/21 pantoprazole 40 mg tablet,delayed 40 mg PO DAILY #30 tab 12/21/21 release (Protonix) tramadol 50 mg tablet 50 mg PO Q6H PRN #4 tab 12/21/21 Current Visit Medications: Current Medications Generic Name Dose Route Start Last Admin Trade Name Freq PRN Reason Stop Dose Admin Acetaminophen 1,000 mg 12/21/21 06:00 Acetaminophen 500 Mg Tab PO 12/21/21 16:00 PREOP AMBREEN Acetaminophen 1,000 mg 12/21/21 08:30 Acetaminophen 500 Mg Tab PO TID AMBREEN Aspirin 81 mg 12/21/21 08:30 Aspirin E.C. 81 Mg Tabec PO BID AMBREEN Celecoxib 400 mg 12/21/21 06:00 Celecoxib 200 Mg Cap PO 12/21/21 16:00 PREOP ABMREEN Celecoxib 200 mg 12/21/21 08:30 Celecoxib 200 Mg Cap PO BID AMBREEN Docusate Sodium 100 mg 12/21/21 06:24 Docusate Sodium 100 Mg Cap PO BID PRN PRN Constipation Hydromorphone HCl 0.5 mg 12/21/21 06:24 Hydromorphone 2 Mg/Ml Vial IVP Q2H PRN PRN Tranexamic Acid 1,000 mg/ 60 mls @ 360 mls/hr 12/21/21 06:00 Sodium Chloride IV 12/21/21 16:00 PREOP AMBREEN Ringer's Solution 1,000 mls @ 80 mls/hr 12/21/21 06:00 IV 12/23/21 23:59 INFUSION AMBREEN Cefazolin Sodium/Dextrose 2 gm in 50 mls @ 100 mls/hr 12/21/21 06:00 Ancef Duplex IVPB 12/21/21 23:59 PREOP AMBREEN Cefazolin Sodium/Dextrose 1 gm in 50 mls @ 100 mls/hr 12/21/21 16:00 Ancef Duplex IVPB 12/22/21 08:29 Q8H AMBREEN IV Miscellaneous Supplies 1 each 12/21/21 06:00 Iv Access IV 12/23/21 23:59 DIRECTED AMBREEN Ondansetron HCl 4 mg 12/21/21 06:24 Ondansetron 4 Mg/2 Ml Vial IVP Q6H PRN PRN Nausea Pantoprazole Sodium 40 mg 12/21/21 07:30 Pantoprazole 40 Mg Tabcr PO DAILY@0730 AMBREEN Sodium Chloride 0 ml 12/21/21 06:00 Normal Saline Flush 10 Ml Syr IV 12/23/21 23:59 PRN PRN Sodium Chloride 0 ml 12/21/21 06:00 Normal Saline 10 Ml Vial IJ 12/23/21 23:59 DIRECTED PRN Sterile Water 0 ml 12/21/21 06:00 Water,Injection,Sterile 10 Ml Vial IJ 12/23/21 23:59 DIRECTED PRN Tramadol HCl 50 mg 12/21/21 06:24 Tramadol 50 Mg Tab PO Q4H PRN PRN Pain PFSH Active Problems Active Problems: Problem Status Onset Code Cystocele 07/16/13 Fibrocystic disease of breast 07/16/13 N60.19 History of tobacco use 07/16/13 Z87.891 Herpes simplex 07/22/13 B00.9 Hyperlipidemia 07/16/13 E78.5 Abnormal mammography 10/07/13 R92.8 Osteoporosis 09/20/13 M81.0 Supraventricular tachycardia 09/19/13 I47.1 Vitamin D deficiency 07/16/13 E55.9 Diverticulosis K57.90 Internal hemorrhoid K64.8 History of uterine prolapse 04/24/18 Z87.42 Medicare annual wellness visit, subsequent Z00.00 Left groin pain R10.32 Statin declined Z53.20 Medicare annual wellness visit, subsequent Z00.00 Urinary symptom or sign R39.9 Chronic groin pain R10.30, G89.29 Elevated blood pressure reading without diagnosis of hypertension R03.0 Left buttock pain M79.18 Left shoulder pain M25.512 Left groin pain R10.32 Left hip pain M25.552 Abnormal MRI, pelvis R93.5 Left buttock pain M79.18 Left shoulder pain M25.512 Hypertension I10 Degenerative joint disease of left hip M16.12 Traumatic rotator cuff tear S46.019A Partial tear of left rotator cuff M75.112 Medical History Medical History (Updated 12/21/21 @ 06:22 by Scotty Evans) Diverticulosis 04/08/19 Dr Azeb Ernst, [facility], [place], repeat 10 years Hemorrhoids Pericardial effusion Medical History Comments:: Pt. stated [place] [facility] [place] moderate pericardial effusion was detected Nothing was ever done about it per pt. (Note [place] [facility] [place]est[place] Procedural Note) Surgical History Surgical History (Updated 12/21/21 @ 06:20 by Scotty Evans) Biopsy of breast (09/26/13) US guided biopsy L breast [facility] [place]cision, Skin Mass head & leg, benign Femoral hernia of left side History of colonoscopy Done 04/08/19 L Femoral Hernia Repair 1995, [facility] [place], [place] R breast lumpectomy x2 (fibrocystic) 1981, [facility] [place], [place] Trigger Finger release 04/2012, R 3rd digit Vaginal hysterectomy (01/04/17[place] [facility] [place] Verdu[place] Bilateral uterosacral ligament suspension/ ant/postrior colporrhaphy, mid-urethral sling Tobacco Smoking/Tobacco Use Status: Former Tobacco Use Alcohol Alcohol Intake: current Alcohol intake frequency: a few times a week Alcohol type: wine Substance Use Substance use: Never Substance use type: does not use Vital Signs and Lab Results Vital Signs Most Recent Vital Signs in EMR: Most Recent Vital Signs Temp Pulse Resp BP Pulse Ox 37.1 C 74 16 139/75 97 12/21/21 06:25 12/21/21 06:25 12/21/21 06:25 12/21/21 06:25 12/21/21 06:25 Lab Results Blood Type / Crossmatch: Patient ABO/Rh O Positive 12/20/21 Antibody Screen NEGATIVE 12/20/21 Complete Blood Count: White Blood Count 4.74 10^3/uL (4.4-10.8) 12/20/21 10:06 12/20/21 Red Blood Count 4.67 10^6/uL (3.93-5.22) 12/20/21 10:06 12/20/21 Hemoglobin 13.5 g/dL (11.2-15.7) 12/20/21 10:06 12/20/21 Hematocrit 42.4 % (36.0-46.0) 12/20/21 10:06 12/20/21 Platelet Count 304 10^3/uL (130-400) 12/20/21 10:06 12/20/21 Complete Metabolic Panel: Sodium Level 142 mmol/L (136-145) 12/20/21 10:06 12/20/21 Potassium Level 4.0 mmol/L (3.5-5.1) 12/20/21 10:06 12/20/21 Chloride Level 104 mmol/L (98-107) 12/20/21 10:06 12/20/21 Carbon Dioxide Level 29.7 mmol/L (21.0-32.0) 12/20/21 10:06 12/20/21 Blood Urea Nitrogen 17 mg/dL (7-18) 12/20/21 10:06 12/20/21 Creatinine 0.8 mg/dL (0.55-1.02) 12/20/21 10:06 12/20/21 Estimated GFR/1.73 m2 >= 60.00 (mL/min/1.73m2) 12/20/21 10:06 12/20/21 Calcium Level 8.8 mg/dL (8.5-10.1) 12/20/21 10:06 12/20/21 Glucose Level 76 mg/dL (74-106) 12/20/21 10:06 12/20/21 Liver Function Panel: No Data to Display Coagulation Panel: No Data to Display Cardiac Panel: No Data to Display Arterial Blood Gas: No Data to Display Venous Blood Gas: No Data to Display Pancreas Panel: No Data to Display Thyroid Panel: No Data to Display Infectious Disease: Coronavirus (COVID-19)(PCR) Negative (Negative) 12/20/21 10:19 12/20/21 Coronavirus 2019 Source Nasal/Nares 12/20/21 10:19 12/20/21 Blood Cultures: No Data to Display Toxicology Panel: No Data to Display Anesthesia Assessment and Plan Anesthesia History Personal History: Delayed Emergence Family History: No Family History of Anesthesia Complications Exercise Tolerance Exercise Tolerance: Metabolic Equivalents>4 Pertinent Negatives Pertinent Negatives: No Symptoms of GERD, No Major Cardiovascular Symptoms or Complaints, No Major Pulmonary Symptoms or Complaints and No History of CVA/TIA Cardiac & Pulmonary Exam Cardiac Exam: Normal S1/S2 Heart Sounds Pulmonary Exam: Clear Bilateral Breath Sounds Implantable Cardiac Device Does patient have a Pacemaker or an ICD?: No Airway Exam Known Difficult Airway: No Mallampati Class: 1 Mouth Opening: Normal (> 3cm) Thyromental Distance: Greater than 3 cm Neck Range of Motion: Full ROM Neck Circumference: Normal Teeth Condition: Normal Dentition Airway Comments: Broken tooth top left ASA Classification ASA Score: ASA 2 Emergency Case?: No NPO Status NPO Status: NPO Clears >2 hours, Solids >8 hours Anesthesia Plan Resuscitation Status: Full Code Anesthesia Technique: Spinal Anesthesia Airway Planned: Natural Airway Monitors Used: Standard Monitors
[2021-12-21] MEDS: Acetaminophen 500 MG TAB 1000 MG PO (07:02)
[2021-12-21] MEDS: Celecoxib 200 MG CAP 400 MG PO (07:02)
[2021-12-21] MEDS: Lactated Ringers 1,000 ML 80 ML IV (07:12)
[2021-12-21] MEDS: ceFAZolin 2 GM/50 ML BAG IVPB (07:52)
[2021-12-21] MEDS: Bupivacaine 0.25% Pres-Free 30 ML VIAL (08:09)
[2021-12-21] MEDS: Ketorolac 30 MG/ML VIAL (08:09)
--- NOTE | 2021-12-21 08:53 | DI.RAD_ITS ---
Exam(s) XR HIP LT IN OR EXAM: XR HIP LT IN OR CLINICAL HISTORY: Degenerative joint disease of left hip TECHNIQUE: 2D and realtime digital imaging was performed. CONTRAST MATERIAL: Refer to procedure report. COMPARISON: No exams were available for comparison FINDINGS: Fluoroscopy was provided for Dr. Huerta during the performance of a left hip replacement. Please refer to the procedure report for complete details. Ka,r=2.884 mGy IMPRESSION: RADIATION DOSE DELIVERED:
--- NOTE | 2021-12-21 09:00 | ROE_ITS ---
Date of service: 12/21/21 Time of Service: 09:00 Operative Note Operative Note DATE OF PROCEDURE: 12/21/21 PRE-OP DIAGNOSIS: Left Hip Osteoarthritis POST-OP DIAGNOSIS: same PROCEDURE: Left Anterior Total Hip Arthroplasty with Intraoperative Navigation SURGEON: Casey Huerta HOUSING QUALITY STANDARD INSPECTOR: Monica Fried ANESTHESIA TYPE: Spinal Refer to Anesthesia Record ESTIMATED BLOOD LOSS: 100 PATHOLOGY: none sent COMPLICATIONS: None Patient was transported to: PACU Patient's condition: stable Implants: 1. Depuy [place] Acetabular Component, 50mm 2. Depuy Acetabular Liner, [id number] 3. Depuy Corail Standard 125 degree Collared Femoral Stem, Size 11 4. Depuy Altrx Ceramic Femoral Head, Size 32+5mm Indications: I have seen Richelle in clinic for symptoms of hip arthritis, confirmed with radiographic findings. She has exhausted nonoperative methods and was having significant limitations in daily function and desired better function and less pain. I discussed the technical details of a hip replacement. I explained the risks of the procedure to include, but not limited to, bleeding, infection, pain, stiffness, fracture, damage to nerves and vessels, damage to muscles and tendons, loosening, instability, leg length inequality, need for repeat procedure, blood clot and cardiopulmonary demise. Despite these risks, Richelle elected to proceed. Findings: There was significant signs of arthritis throughout the hip with large areas of the weight-bearing femoral head with cartilage loss Procedure Description: Richelle was greeted in the preoperative holding area where the correct side was identified and marked. The consent was reviewed with the patient and signed. The history and physical was updated. All questions were answered. She was taken back to the operating room. A spinal anesthestic was then administered. The feet were wrapped with cast padding and Coban and then placed into the boot liners and then into the boots. Care was taken to protect the skin and make sure the heels were fully down and the boots were stable. The patient was then positioned onto the HANA table. Both legs were held in a neutral position. SCDs were applied. The patient was then slid down onto a peroneal post. Prophylactic antibiotics in the form of Cefazolin were administered. 1g of Tranxemic Acid was given intravenously within 30 minutes of incision. The left leg was then prepped with Chloraprep and draped in a standard fashion. A second prep with Chloraprep was performed prior to placement of a shower-curtain type drape with Iodine impregnated skin p rotection. A timeout to confirm correct identity, side and site, procedure, allergies, anesthesia, and medical concerns was performed. An obliquely oriented incision was made starting lateral to the ASIS and running distal over the Tensor Fascia Andreea (TFL) muscle belly toward the fibular head, approximately 10cm. The skin and soft tissue was dissected sharply, through Gabriel?s fascia, and to the fascia of the TFL. With the fascia and superior border of the IT band identified, the fascia was incised with a new knife just above any perforators from the IT band. The TFL muscle belly was bluntly dissected away from the fascia and moved laterally. The fat between TFL and rectus was identified to ensure the dissection was not within the TFL. Blunt dissection created space between abductors and the capsule and retractor was placed over the lateral femoral neck. The fibers of the rectus femoris tendon were identified and these were freed from the anterior capsule. A second cobra retractor was placed around the medial femoral neck. The TFL was further retracted laterally to show the deep fascia. Careful dissection through this layer identified three main crossing vessels of the lateral femoral circumflex. These were cauterized in multiple locations and then cut without any noticeable bleeding. The TFL was further released bluntly from the deep fascia to expose anterior hip capsule and fat The Shai orthopaedic retractor was then placed beneath the TFL and against sartorius and medial soft tissues to protect and retract the soft tissues. A T-capsulotomy was then performed starting at the superior lateral acetabulum and moving distally to the intertrochanteric ridge. These capsular flaps were tagged with a No. 1 Ethibond and elevated from within. The capsular flaps were released to the shoulder of the lateral neck and to the lesser trochanter to give excellent visualization of the proximal femur. A neck osteotomy was performed using an oscillating saw based on preoperative templates. This cut started in the shoulder and of the lateral neck and exited medially. The saw was at all times directed medially to avoid injury to the greater trochanter. Gross traction was applied to the leg and the osteotomy opened. The femoral head was removed with a corkscrew, making sure to protect the TFL on its exit. Traction was released after head removal. This was measured on the back table to determine the starting reamer size. Portions of the rectus obscuring visualization were minimally elevated off the superior acetabulum. An anterior retractor was placed over the anterior wall between capsule and labrum and attached to the Gripper retraction system. The femur was rotated to 90 degrees and medial capsule was fully released until the lesser trochanter was palpable and visible; the femur was returned to 30 degrees. A posterior retractor was placed similarly between capsule and labrum. This provided excellent visualization. The contents of the cotyloid fossa were removed with electrocautery and the labrum was removed with a knife. Acetabular reaming began with a 46mm reamer. This first reaming was directed anterior to posterior and medial to get down to the true floor. This was inspected and reamed until the true floor was reached. The anterior retractor was then released and entry and exit was provided by traction on the capsular flaps. I then reamed sequentially up to a 50mm reamer where good fit was obtained. The larger reamers were oriented based on anatomical reference of the anterior and lateral cardona to ensure proper abduction and anteversion. Positioning and size was confirmed with the fluoroscopy. A 50mm Depuy [place] acetabular component was selected. The acetabulum was reamed around the periphery with the selected acetabular size to prevent a rim fit. The deep tissues were irrigated. The acetabular component was then impacted in a position of about 40-45 degrees of abduction and 15-20 degrees of anteversion, using the patient?s anatomy as the ultimate landmark. Fluoroscopy was used to confirm this. There was excellent surveillance technician of the acetabular component and the inserting handle was removed. The acetabular liner, Depuy [id number] polyethylene liner, was inserted and lined up with the tines of the acetabular component. There was no soft tissue interposition. The liner was then impacted into position and confirmed to be well-seated. A portion of the ian-articular cocktail was then injected around the acetabulum into the capsule and periosteum. This cocktail consisted of 50cc of 0.25% Bupivicaine and 20cc of Exparel and 30mg of Ketorolac. The leg was rotated to 120 degrees. Any remaining medial capsule was released until the lesser trochanter was easily palpable. A retractor was placed medially. The lateral capsule was further released into the shoulder to allow access to the greater trochanter. A Luciano retractor was placed over the greater trochanter which allowed the trochanter to flip in front of the capsule for excellent exposure. The leg was brought down into maximal extension and 20 degrees of adduction while ensuring there was no impingement on the acetabulum. Any remnant capsule within the trochanter was released. Piriformis and obturator externis were identified and protected. There was excellent access to the proximal femur. The lateral neck remnant was removed with a rongeur. A blunt canal probe was used to identify the canal and trajectory for later broaching. A box osteotome initiated the broach course. A small curved rasp and a curved curette were used to work laterally. Broaching then began with a size 8 Corail broach. This was inserted manually around the trochanter and into the canal before mallet blows. The broach was seated to a few millimeters below the cut level based on the neck cut and the preoperative template. Sequential broaching was continued with the [employer] pneumatic broaching device until a tight fit was obtained with good rotational control of the femur. The neck cut was slightly higher than I had initially templated so a trial standard 125 neck was inserted along with a +5 trial head. The leg was brought out of extension and adduction and then reduced with traction and internal rotation. The leg was stable anteriorly in a position of 30 degrees of extension and 90 degrees of external rotation. Fluoroscopy was used to ensure there was no fracture and the stem was seated well. Leg lengths were checked with an AP pelvis and pelvic reference points. [facility] navigation system was used to confirm appropriate positioning and leg length and offset. Once content with the desired offset and leg lengths, the leg was brought back into extension, external rotation and adduction. The periosteum and surrounding tissue was injected with remaining portion of the ian-articular cocktail. The proximal femur was irrigated as well as the deep tissues. The Depuy Cor[place] standard 125 collared stem, size 11, was then manually inserted into the proximal femur making sure to control rotation. It was then malleted into position with light blows, giving breaks to allow bone expansion and decrease risk of fracture. The selected Depuy Altrx Ceramic Head, size 32+5mm, was then placed onto the clean and dry trunnion and secured with impaction onto the tapered fit. The leg was brought back out of extension and adduction and reduced with traction and internal rotation. Stability was confirmed with no shuck at 90 degrees of external rotation and 30 degrees of extension. No impingement through range of motion arc. Final x-ray images were obtained with fluoroscopy to confirm adequate positioning and no intraoperative fracture. The deep tissues were thoroughly irrigated with Irrisept chlorhexadine solution. The capsule was then reapproximated with the previously placed Ethibond sutures. The TFL fascia was finally closed with a No. 2 Stratafix, barbed suture. Deep tissues were then reapproximated with 0 Vicryl and a running 2-0 Vicryl. The skin was closed with a running 4-0 Monocryl in a subcuticular fashion. This was reinforced with skin glue. A Mepilex silver dressing was applied. At the end of the case, all counts were correct. Richelle was transferred to the hospital bed without difficulty and suffering no apparent complication. She has a good prognosis. Physical therapy will start today and without restrictions, weight-bearing as tolerated. Aspirin 81mg BID will be used for DVT prophylaxis.
--- NOTE | 2021-12-21 10:19 | W.ANESPOSTOP ---
Postoperative Evaluation Date, Time and Location Date Performed: 12/21/21 Time Performed: 10:19 Patient Location: Day Surgery Unit Vital Signs Most Recent Imported Vital Signs: Most Recent Vital Signs Temp Pulse Resp BP Pulse Ox 36.5 C 75 16 157/80 H 100 12/21/21 09:57 12/21/21 09:57 12/21/21 09:57 12/21/21 09:57 12/21/21 09:57 Pain Score Most Recent Pain Score: Most Recent Pain Score Pain Level 0 12/21/21 09:57 Assessment Mental Status: Awake (Alert & Oriented to Patient Baseline) Airway and Respiratory Function: Patent airway with normal (patient baseline) respiratory exam Cardiovascular Function: Hemodynamically Stable Hydration Status: Adequately Hydrated Nausea & Vomiting: No Nausea or Vomiting Pain: Pt. Denies Any Pain Peripheral Nerve Block: Patient did not receive a nerve block
[2021-12-21] MEDS: traMADol 50 MG TAB PO (11:07)
--- NOTE | 2021-12-21 12:38 | IN_ITS ---
Date of service: 12/21/21 Time of Service: 12:38 PT Notes Visit Reasons: Left RISSA Physical Therapy Day Surgery Initial Evaluation Date: 12/21/2021 Referring Doctor: YEVGENIY Suazo PT Orders: PT CONSULT: Status post Ortho surgery Precautions: WBAT on left LE with AD. Patient Profile/Admitting Diagnosis: Tamiko Granda is a 71-year-old female with degenerative joint disease of the left hip and is status post left total hip arthroplasty on postoperative day 0. PMHX: Medical History? Diverticulosis 04/08/19 Dr Azeb Ernst, [facility], colo, repeat 10 years Hemorrhoids Surgical History? Biopsy of breast (09/26/13) US guided biopsy L breast [facility] Excision, Skin Mass head & leg, benign History of colonoscopy Done 04/08/19 L Femoral Hernia Repair 1995, [facility] [place], Mikana R breast lumpectomy x2 (fibrocystic) 1981, [facility] [place], Mikana Trigger Finger release 04/2012, R 3rd digit Vaginal hysterectomy (01/04/17) [facility] Dr. Verdugo Bilateral uterosacral ligament suspension/ ant/postrior colporrhaphy,? mid- urethral sling Social History/Home Situation: Lives with in a private home with 17 steps to enter with a rail on the left side going up. Equipment Owned/DME: None Subjective: Agreeable to PT consult. Reports 4/10 pain on the left hip and thigh after ambulation that subsided with rest. Reported mild lightheadedness that did not limit mobility performance. Objective: General Observation: Mepilex Ag over surgical incision. TEDS in the leg. Cold pack on left hip. Mental Status: Alert and oriented x4 Pain: 4/10 pain in the left hip and thigh ROM: Right Lower Extremity: Hip flexion WFL. Hip abduction WFL. Knee flexion WFL. Ankle dorsiflexion WFL. Ankle plantarflexion WFL. Left Lower Extremity: Hip flexion unable to bend at the hip past 90 degrees while seated at edge of bed due to pain. Hip abduction WFL. Knee flexion WFL. Ankle dorsiflexion WFL. Ankle plantarflexion WFL. Strength: Right Lower Extremity: Hip flexors 5/5. Hip abductors 5/5. Knee flexors 5/5. Knee extensors 5/5. Ankle dorsiflexors 5/5. Ankle plantarflexors 5/5. Left Lower Extremity:Hip flexors 3-/5. Hip abductors 4-/5. Knee flexors 4/5. Knee extensors 4/5. Ankle dorsiflexors 5/5. Ankle plantarflexors 5/5. Sensation: Intact as to pain and light pressure and bilateral lower extremities Bed Mobility/Transfers: Supine to sit independent Sit to stand contact-guard assist Stand to sit supervision Bed to chair standby assist Gait: 150 feet of level surface ambulation using front wheeled walker with step- through gait pattern requiring contact-guard assist of PT and standby assist of nurse Fajardo for safety. Denies headache and chest pain but did report mild lightheadedness. Stairs: Negotiated 4 x 6 inch steps and 2 x 4 inch steps while holding onto 1 rail and using a single-point cane with the other hand with step to gait pattern requiring contact-guard assist. Balance: Static Sitting: Normal Dynamic Sitting: Normal Static Standing: Fair Dynamic Standing: Fair Special Tests: Mobility Limitations Standardized Measure [facility] AM-PAC 6 clicks Basic Mobility Inpatient Short Form: Raw Score: 23 CMS Score: 11% deficit Informed Consent/Education: Patient instructed in purpose of PT consult. Education and training on initial set of exercises that can be done at home have been completed with patient using the Queralt quynh. Assessment: Richelle requires use of a front wheel walker for all mobility ADL performance to maximize independence and reduce fall risk. Patient presents with clinical signs and symptoms consistent with current/admitting diagnoses that have resulted to mobility limitations, gait instability, generalized weakness, and impairment of motor control as demonstrated by the following impairment level findings: 1. Decreased strength to left hip major muscle groups 2. Impaired standing balance 3. Limitation of joint range of motion in left hip Impairments are contributing to the following functional limitations: 1. Inability to safely ambulate without assistive device 2. Increase completion time for mobility ADL performance 3. Increased fall risk Patient is assessed as a 01530 moderatecomplexity based on the following: History: 71-year-old female with impairment level findings, functional limitations, and past medical history as indicated above Examination: Demonstrable impairment in strength, balance, and mobility level with underlying impairments and functional limitations as documented above Presentation: Evolving Decision Makin moderate complexity Goals: N/A. PT evaluation and 1-2 treatment sessions only for functional mobility training using recommended AD and for HEP instruction. Plan of Care/Treatment Plan: N/A. PT evaluation and 1-2 treatment session only for functional mobility training using recommended AD and for HEP instruction. DISCHARGE RECOMMENDATIONS: [] Home with no services [] [] Home with services [specify] [X] Home with outpatient PT. Home when medically cleared by orthopedic surgeon. Will benefit from outpatient PT services in order to facilitate return to independent community ambulation without an assistive device. [] SNF for continued rehabilitation [] [] [facility] [] [] SNF versus LTC based on ability to participate and progress [] TREATMENT CODE/TIME: 79393 x 20 minutes, 08676 x 12 minutes beginning at 12:38 PM. Thank you for the opportunity to participate in the care of this patient. Sadaf Valdivia PT, DPT, CLT [facility] [place], [place]
== END 2021-12-21 13:55 | disposition home or self-care (01) ==
PROVIDERS: PCP Nurse Practitioner; Visit Provider Student in an Organized Health Care Education/Training Program
PROC: (CPT 27130; principal; 2021-12-21 07:30)
DX: M16.12 Unilateral primary osteoarthritis, left hip (principal); E78.5 Hyperlipidemia, unspecified; E55.9 Vitamin D deficiency, unspecified; I10 Essential (primary) hypertension
CPT/HCPCS: 27130; 97162; 97530; 73501; J0690; J1100; J1885; J2001; J2250; J2405

== ENCOUNTER 2022-01-03 13:50 | Outpatient (CLI) | payer MEDICARE, OTHER, SELFPAY ==
--- NOTE | 2022-01-03 13:00 | DI.RAD_ITS ---
Exam(s) XR HIP LT COMPLETE AP PELVIS EXAM: XR HIP LT COMPLETE AP PELVIS INDICATION: follow up. COMPARISON: CR XR HIP LT COMPLETE AP PELVIS from 12/09/2021 XA XR HIP LT IN OR from 12/21/2021 TECHNIQUE: 2D digital imaging was performed. Three views. FINDINGS: Left hip prosthesis in satisfactory position, unchanged from the intraoperative images. Right hip genaro int space well maintained. Mild right acetabular spurring. DATA REPOSITORY: RADIATION DOSE DELIVERED:
== END 2022-01-03 13:51 | disposition home or self-care (01) ==
LOC: DIORS 13:50
PROVIDERS: PCP Nurse Practitioner; Referring Provider Nurse Practitioner; Visit Provider Student in an Organized Health Care Education/Training Program
DX: M16.12 Unilateral primary osteoarthritis, left hip (principal)
CPT/HCPCS: 73502

== ENCOUNTER → 2022-01-31 09:50 | Outpatient (BNVA) | payer MEDICARE, OTHER, SELFPAY | PROVIDERS: PCP Nurse Practitioner; Referring Provider Nurse Practitioner; Visit Provider Student in an Organized Health Care Education/Training Program | DX: M16.12 Unilateral primary osteoarthritis, left hip (principal) ==

== ENCOUNTER → 2022-03-14 09:45 | Outpatient (BNVA) | payer MEDICARE, OTHER, SELFPAY | PROVIDERS: PCP Nurse Practitioner; Referring Provider Nurse Practitioner; Visit Provider Student in an Organized Health Care Education/Training Program | DX: Z47.1 Aftercare following joint replacement surgery (principal); Z96.642 Presence of left artificial hip joint ==

== ENCOUNTER → 2022-03-25 15:41 | Outpatient (CLI) | payer MEDICARE, OTHER, SELFPAY ==
--- NOTE | 2022-03-25 10:45 | DI.RAD_ITS ---
Exam(s) XR ABDOMEN FLAT UPRIGHT EXAM: XR ABDOMEN FLAT UPRIGHT CLINICAL HISTORY: Constipation, obstipation, obstruction,altered bowel function,K59.00, R19.8. TECHNIQUE: 2D digital imaging was performed. COMPARISON: CR XR HIP LT COMPLETE AP PELVIS from 01/03/2022 FINDINGS: Two views-supine and upright No evidence of bowel obstruction. No free air. Stomach is not distended. No obvious masses nor bow el displacement. No obvious calcifications seen over the kidneys nor along course of the ureters. Left hip prosthesis noted. IMPRESSION: Nonspecific bowel gas pattern. No bowel obstruction. No free air DATA REPOSITORY: RADIATION DOSE DELIVERED:
== END ==
PROVIDERS: PCP Nurse Practitioner; Visit Provider Student in an Organized Health Care Education/Training Program
DX: K59.00 Constipation, unspecified (principal); R19.8 Other specified symptoms and signs involving the digestive system and abdomen
CPT/HCPCS: 74019

== ENCOUNTER 2022-03-29 03:23 | Outpatient (CLI) | payer MEDICARE, OTHER, SELFPAY ==
[2022-03-29 10:01] LABS: Anion Gap 5.4 mmol/L (3-11); BUN 22 mg/dL (7-18); CO2 31.6 mmol/L (21.0-32.0); CREATININE 0.8 mg/dL (0.55-1.02); Calcium 8.5 mg/dL (8.5-10.1); Chloride 103 mmol/L (98-107); Glucose 77 mg/dL (74-106); Sodium 140 mmol/L (136-145)
== END 2022-03-29 03:24 | disposition home or self-care (01) ==
LOC: LBO 03:23
PROVIDERS: PCP Nurse Practitioner; Visit Provider Student in an Organized Health Care Education/Training Program
DX: I10 Essential (primary) hypertension (principal); K59.00 Constipation, unspecified; Z91.89 Other specified personal risk factors, not elsewhere classified; B00.9 Herpesviral infection, unspecified; R19.8 Other specified symptoms and signs involving the digestive system and abdomen; R53.83 Other fatigue
CPT/HCPCS: 36415; 80048; 85018

== ENCOUNTER → 2022-05-16 09:29 | Outpatient (BNVA) | payer MEDICARE, OTHER, SELFPAY | PROVIDERS: PCP Nurse Practitioner; Referring Provider Nurse Practitioner; Visit Provider Student in an Organized Health Care Education/Training Program | DX: Z96.642 Presence of left artificial hip joint (principal) | CPT/HCPCS: 99213 ==

== ENCOUNTER 2022-09-28 14:52 | Outpatient (REF) | payer MEDICARE, OTHER, SELFPAY ==
[2022-09-30 11:56] LABS: COVID-19 RT-PCR UVMMC Result Negative (Negative)
== END 2022-09-28 14:53 | disposition home or self-care (01) ==
LOC: LBN 14:52
PROVIDERS: Nurse Practitioner Adult Health; PCP Nurse Practitioner; Visit Provider Nurse Practitioner
DX: Z20.822 Contact with and (suspected) exposure to COVID-19 (principal)
CPT/HCPCS: U0003

== ENCOUNTER 2022-09-28 15:43 | Outpatient (CLI) | payer MEDICARE, OTHER, SELFPAY ==
--- NOTE | 2022-09-28 14:30 | DI.RAD_ITS ---
Exam(s) XR CHEST 2V PA LATERAL EXAM: XR CHEST 2V PA LATERAL CLINICAL HISTORY: Rhonchi bilat lung bases, acute cough, R05.1, R09.89, r/o acute process TECHNIQUE: 2D digital imaging was performed. COMPARISON: CR XR CHEST 2V PA LATERAL from 08/09/2018 FINDINGS: HEART: Normal size. Aorta: Not dilated. PULMONARY VASCULATURE: Normal. LUNGS: Clear. PLEURAL SPACE: No pleural effusion or pneumothorax. BONE:Unremarkable for age. IMPRESSION: No acute abnormality. DATA REPOSITORY: RADIATION DOSE DELIVERED:
== END 2022-09-28 16:03 ==
PROVIDERS: PCP Nurse Practitioner; Visit Provider Nurse Practitioner Adult Health
DX: R05.1 Acute cough (principal); R09.89 Other specified symptoms and signs involving the circulatory and respiratory systems
CPT/HCPCS: 71046

== ENCOUNTER 2022-12-05 03:15 | Outpatient (CLI) | payer MEDICARE, OTHER, SELFPAY ==
[2022-12-05 09:31] LABS: ALT 25 U/L (14-59); AST 15 U/L (15-37); Albumin 3.5 g/dL (3.4-5.0); Alkaline Phosphatase 75 U/L (46-116); Anion Gap 3.2 mmol/L (3-11); BUN 13 mg/dL (7-18); Bilirubin, Total 0.4 mg/dL (0.2-1.0); CO2 33.8 mmol/L (21.0-32.0); CREATININE 0.8 mg/dL (0.55-1.02); Calcium 8.8 mg/dL (8.5-10.1); Calculated LDL 175 mg/dL (<100); Chloride 105 mmol/L (98-107); Cholesterol 267 mg/dL (<200); Estimated GFR 77.75 (mL/min/1.73m2); Glucose 100 mg/dL (74-106); HDL Cholesterol 79 mg/dL (40-60); Potassium 4.2 mmol/L (3.5-5.1); Sodium 142 mmol/L (136-145); TSH (W/Ref FT4) 1.58 uIU/mL (0.36-3.74); Total Protein 6.9 g/dL (6.4-8.2); Triglyceride 66 mg/dL (<150)
== END 2022-12-05 03:16 | disposition home or self-care (01) ==
LOC: LBO 03:15
PROVIDERS: PCP Nurse Practitioner; Referring Provider Nurse Practitioner; Visit Provider Nurse Practitioner
DX: I10 Essential (primary) hypertension (principal); E78.5 Hyperlipidemia, unspecified; E55.9 Vitamin D deficiency, unspecified; L65.9 Nonscarring hair loss, unspecified; M81.0 Age-related osteoporosis without current pathological fracture
CPT/HCPCS: 36415; 80053; 80061; 82306; 84443

== ENCOUNTER 2023-01-27 09:39 | Outpatient (CLI) | payer MEDICARE, OTHER, SELFPAY ==
--- NOTE | 2023-01-27 08:30 | DI.RAD_ITS ---
Exam(s) XR HIP LT AP LAT ONLY EXAM: XR HIP LT AP LAT ONLY CLINICAL HISTORY: annual f/u L RISSA. TECHNIQUE: 2D digital imaging was performed. COMPARISON: CR XR HIP LT COMPLETE AP PELVIS from 01/03/2022 FINDINGS: 3 views This in alignment of the components of the left hip prosthesis remain stable. No fractures nor loose damon evident. Right hip appears unremarkable. Bone density normal. No osseous lesions in the pelvi s. IMPRESSION: Stable appearance. DATA REPOSITORY: RADIATION DOSE DELIVERED:
== END 2023-01-27 09:40 | disposition home or self-care (01) ==
LOC: DIORS 09:40
PROVIDERS: PCP Nurse Practitioner; Visit Provider Student in an Organized Health Care Education/Training Program
DX: Z96.642 Presence of left artificial hip joint (principal); Z47.1 Aftercare following joint replacement surgery
CPT/HCPCS: 99213; 73502

== ENCOUNTER 2023-05-30 16:41 | Outpatient (CLI) | payer MEDICARE, OTHER, SELFPAY ==
[2023-05-30 12:41] LABS: Abs Immature Grans 0.01 10^3/uL (0.0-0.06); Absolute Basophil Count 0.03 10^3/uL (0.0-0.2); Absolute Eosinophil Count 0.11 10^3/uL (0.0-0.7); Absolute Monocyte Count 0.48 10^3/uL (0.1-0.8); Absolute Neutrophil Count 2.92 10^3/uL (1.2-6.7); Basophils % 0.6; Eosinophils % 2.2; HCT 40.2 % (36.0-46.0); HGB 13.1 g/dL (11.2-15.7); Immature Grans % 0.2; Lymphocytes % 29.7; MCH 29.1 pg (27.0-33.0); MCHC 32.6 % (32.0-36.0); MCV 89 fL (80-95); MPV 8.9 fL (8.0-11.0); Monocytes % 9.5; Neutrophils % 57.8; Platelet Count 268 10^3/uL (130-400); RDW 13.1 % (11.7-14.6); RDW-SD 42.9 fL; WBC 5.05 10^3/uL (4.4-10.8)
[2023-05-30 13:43] LABS: Vitamin D 25 Total 52.6 ng/mL (30-100)
[2023-05-30 13:44] LABS: ALT 28 U/L (14-59); AST 17 U/L (15-37); Albumin 3.9 g/dL (3.4-5.0); Alkaline Phosphatase 77 U/L (46-116); Anion Gap 5.6 mmol/L (3-11); BUN 18 mg/dL (7-18); Bilirubin, Total 0.4 mg/dL (0.2-1.0); CO2 30.4 mmol/L (21.0-32.0); CREATININE 0.8 mg/dL (0.55-1.02); Calcium 9.2 mg/dL (8.5-10.1); Chloride 101 mmol/L (98-107); Estimated GFR 77.75 (mL/min/1.73m2); Ferritin 80 ng/mL (8-252); Glucose 98 mg/dL (74-106); Potassium 4.3 mmol/L (3.5-5.1); Sodium 137 mmol/L (136-145); TSH (W/Ref FT4) 0.93 uIU/mL (0.36-3.74); Total Protein 7.4 g/dL (6.4-8.2); Vitamin B12 620 pg/mL (193-986)
[2023-05-31 10:16] LABS: Lyme Ab w Rflx to Lyme Confirm Negative (Negative)
[2023-06-01 21:43] LABS: Anaplasma phagocytophilum Negative (Negative); B. miyamotoi PCR Negative (Negative); Babesia divergens/MO-1 Negative (Negative); Babesia duncani Negative (Negative); Babesia microti Negative (Negative); Ehrlichia chaffeensis Negative (Negative); Ehrlichia ewingii/canis Negative (Negative); Ehrlichia muris eauclairensis Negative (Negative)
== END 2023-05-30 16:42 | disposition home or self-care (01) ==
LOC: LBO 16:43
PROVIDERS: PCP Nurse Practitioner; Visit Provider Nurse Practitioner
DX: J45.909 Unspecified asthma, uncomplicated (principal); R06.02 Shortness of breath; R53.83 Other fatigue; E55.9 Vitamin D deficiency, unspecified; M81.0 Age-related osteoporosis without current pathological fracture; I10 Essential (primary) hypertension; I47.1 Supraventricular tachycardia
CPT/HCPCS: 36415; 80053; 82306; 87798; 82607; 82728; 84443; 85025; 86618

== ENCOUNTER 2023-06-09 04:23 | Outpatient (CLI) | payer MEDICARE, OTHER, SELFPAY ==
[2023-06-09] MEDS: Inhaler, Assist Device 1 EACH MC (11:38)
[2023-06-09] MEDS: Levalbuterol HFA 15 GM INH 4 PUFF IH (11:38)
--- NOTE | 2023-06-13 13:15 | W.PFT ---
Date of service: 06/09/23 Time of Service: 10:02 Pulmonary Function Test Result Indications: Dyspnea Interpretation Spirometry: There is no airflow limitation. No bronchodilator response. Lung Volumes: Normal lung volumes Diffusion Capacity: Normal diffusion Airway Pressure: Normal airways resistance Impression Normal pulmonary function testing Clinical Correlation therefore is recommended.
== END 2023-06-09 04:24 | disposition home or self-care (01) ==
LOC: RT 04:24
PROVIDERS: PCP Nurse Practitioner; Visit Provider Nurse Practitioner
DX: R06.02 Shortness of breath (principal)
CPT/HCPCS: 94060; 94726; 94729

== ENCOUNTER → 2023-08-10 02:32 | Outpatient (CLI) | payer MEDICARE, OTHER, SELFPAY ==
--- NOTE | 2023-08-10 08:15 | DI.US_ITS ---
APPROVED REPORT EXAM: Comprehensive 2D, Doppler, and color-flow Echocardiogram Patient Location: Out-Patient Publication Specialist: Basilio Caldera RDCS (AE) Indications: episodes SOB, dizziness Other Information Study Quality: Good Conclusion Normal left ventricular wall thickness and chamber size. Ejection fraction is 60%. There is stage I diastolic dysfunction (normal for age). There were no wall motion abnormalities Normal right ventricular size and systolic function Both atria are normal in size There are no structural valvular abnormalities There is mild mitral regurgitation Mildly dilated ascending aorta 3.58 cm Estimated right ventricular systolic pressure is 28 mmHg Wall motion Left Ventricle The left ventricle is normal size. The left ventricular systolic function is normal. The left ventric ular ejection fraction is within the normal range. There is normal left ventricular wall thickness. T here is normal LV segmental wall motion. There is no ventricular septal defect visualized. LVEF is 60 %. Right Ventricle The right ventricle is normal size. The right ventricular systolic function is normal. The RVSP is 27 .9 mmHg. Atria The left atrium size is normal. The right atrium size is normal. The interatrial septum is intact wit h no evidence for an atrial septal defect. Aortic Valve The aortic valve is normal in structure. Aortic valve is trileaflet. There is no aortic valvular sten osis. No aortic regurgitation is present. Mitral Valve The mitral valve is normal in structure. No evidence of mitral valve stenosis. Mild mitral regurgitat ion. Tricuspid Valve The tricuspid valve is normal in structure. There is no tricuspid valve stenosis. Trace to mild tricu spid regurgitation. Pulmonic Valve The pulmonary valve is normal in structure. There is no pulmonic valvular stenosis. There is no pulmo stan valvular regurgitation. Great Vessels The aortic root is normal in size. The ascending aorta is mildly dilated. Aortic arch is normal in ca liber. IVC is normal in size and collapses >50% with inspiration. Pericardium There is no pericardial effusion. 2D Dimensions IVSD d PLAX 0.84 cm F: 0.6-1.0 Ao Root d 2.94 cm F: 2.7 - 3.3 LVPW d PLAX 0.93 cm F: 0.6 - 1.0 Ao Asc Diam d 3.58 cm F: 2.3 - 3.1 LVID d PLAX 4.62 cm F: 3.8 - 5.2 LVDs 3.17 cm F: 2.2 - 3.5 LV EF Teichholz 59.3 % FS 31.41 % LV EDV (Teich) 98.2 mL LV ESV (Teich) 40.0 mL Stroke Vol Index (Teich) 33.88 M-Mode TAPSE 2.27 cm (M/F) >1.7 Auto EF LV EDV A4C 88.6 mL LV EDV A2C 74.5 mL LV EDV BP 85.5 mL LV ESV A4C 33.9 mL LV ESV A2C 29.7 mL LV ESV BP 32.2 mL LVEF(%) A4C 61.8 % LVEF(%) A2C 60.1 % LVEF(%) BP 62.3 % LV SV A4C 54.8 ml LV SV A2C 44.8 ml LV SV BP 53.2 ml LV CO A4C 4.4 L/min LV CO A2C 3.7 L/min LV CO BP 4.0 L/min HR A4C 80.91 BPM HR A2C 81.79 BPM LV EDV Index (BP) LA Volume LA Length A4C 3.8 cm LA Length A2C LA Area A4C s 7.22 cm2 LA Area A2C s LA Vol A4C A-L 11.60 mL LA Vol A2C A-L LA Vol Biplane A-L LA Vol A4C MOD 11.3 mL LA Vol A2C MOD LA Vol BP MOD RA Volume RA Area A4C 9.2 cm2 RA ESV A4C (A-L) 18.0mL RA Vol/BSA A4C A-L RA Length A4C 4.0 cm RA ESV A4C (MOD) 18.6mL LV Diastology MV E' medial 0.069 (>0.07 m/s) MV E Vmax 0.77 (0.4-1.3 m/s) MV E/E' MED 11.11 (<14) MV A Vmax 1.00 (0.4-1.3 m/s) MV E' lateral 0.072 (>0.1 m/s) E/A Ratio 0.8 MV E/E' LAT 10.69 (<14) MV E' Average 0.070 m/s MV E/E'(average) 10.89 Aortic Valve AoV Vmax 1.25 m/s LVOT Vmax 1.15 m/s AoV Peak Grad 6.2 mmHg LVOT Peak Grad 5.3 mmHg AoV Area (Vmax) 2.85 cm2 LVOT VTI 0.254 m AoV VTI 0.284 m LVOT Mean Grad 2.6 mmHg AoV Mean Daniel. 0.89 m/s LVOT SV 78.42 mL AoV Mean Grad 3.5 mmHg LVOT Diam s 1.95 cm AoV Area (VTI) 2.76 cm2 Velocity Ratio 0.92 Mitral Valve MV DT 279 (160-240 msec) Pulmonary Valve PV Vmax 0.86 (0.5-1.5 m/s) RVOT Vmax 0.71 m/s PV Peak Grad 3.0 mmHg RVOT Peak Gr. 2.0 mmHg PV Mean Daniel 0.64 m/s RVOT VTI 0.176 m PV Mean Grad 1.8 mmHg RVOT Mean Gr. 1.2 mmHg Tricuspid Valve RA Pressure 3.00 mmHg TR Vmax 2.49 m/s TR Peak Grad 24.8 mmHg RVSP (TR) 27.9 mmHg
== END ==
PROVIDERS: PCP Nurse Practitioner; Visit Provider Nurse Practitioner
DX: R06.02 Shortness of breath (principal); R42 Dizziness and giddiness
CPT/HCPCS: 93306

== ENCOUNTER 2024-05-10 08:28 | Outpatient (RCR) | payer MEDICARE, OTHER, SELFPAY ==
--- NOTE | 2024-05-10 11:17 | HOLTER_ITS ---
APPROVED REPORT Conclusion This is a 48-hour Holter monitor Rhythm throughout was sinus with an average heart rate of 78. Minimum was 59, maximum 118 There were very rare isolated atrial and ventricular ectopic beats There was no atrial fibrillation no high-grade AV block no pauses greater than 3 seconds
== END 2024-05-25 23:59 | disposition home or self-care (01) ==
LOC: CARDOPNVT 08:28
PROVIDERS: PCP Nurse Practitioner; Visit Provider Internal Medicine Cardiovascular Disease
DX: R06.00 Dyspnea, unspecified (principal)
CPT/HCPCS: 93227; 93225; 93226

== ENCOUNTER 2024-05-10 09:27 | Outpatient (CLI) | payer MEDICARE, OTHER, SELFPAY ==
[2024-05-10 09:22] LABS: HCT 41.8 % (36.0-46.0); HGB 13.7 g/dL (11.2-15.7); MCH 29.8 pg (27.0-33.0); MCHC 32.8 % (32.0-36.0); MCV 91 fL (80-95); MPV 9.1 fL (8.0-11.0); Platelet Count 273 10^3/uL (130-400); RDW 12.8 % (11.7-14.6); RDW-SD 42.5 fL; WBC 3.99 10^3/uL (4.4-10.8)
[2024-05-10 10:18] LABS: ALT 24 U/L (14-59); AST 11 U/L (15-37); Albumin 3.6 g/dL (3.4-5.0); Alkaline Phosphatase 79 U/L (46-116); Anion Gap 5.2 mmol/L (3-11); BUN 13 mg/dL (7-18); Bilirubin, Total 0.31 mg/dL (0.2-1.0); CO2 32.8 mmol/L (21.0-32.0); CREATININE 0.9 mg/dL (0.55-1.02); Calcium 8.9 mg/dL (8.5-10.1); Calculated LDL 172 mg/dL (<100); Chloride 103 mmol/L (98-107); Cholesterol 256 mg/dL (<200); Estimated GFR 67.08 (mL/min/1.73m2); Glucose 104 mg/dL (74-106); HDL Cholesterol 71 mg/dL (40-60); Potassium 4.1 mmol/L (3.5-5.1); Sodium 141 mmol/L (136-145); Total Protein 6.9 g/dL (6.4-8.2); Triglyceride 66 mg/dL (<150)
== END 2024-05-10 09:28 | disposition home or self-care (01) ==
LOC: LBO 09:34
PROVIDERS: PCP Nurse Practitioner; Visit Provider Nurse Practitioner
DX: R42 Dizziness and giddiness (principal); E78.5 Hyperlipidemia, unspecified
CPT/HCPCS: 36415; 80053; 80061; 85027; 93227; 93225

== ENCOUNTER 2024-05-30 02:20 | Outpatient (CLI) | payer MEDICARE, OTHER, SELFPAY ==
--- NOTE | 2024-05-30 06:45 | DI.NM_ITS ---
APPROVED REPORT Exam: Exercise Treadmill Patient Location: Out-Patient Room/Bed: Stress Nurse: Janet James RN and Mihir Nelson RN Ordering Provider:ALAN DENTON, Contact Number: [phone] BMI: 28.89 Baseline Rhythm: Sinus Rhythm. Comment: Rare PVC. Indications: Dyspnea on Exertion; Paralysis. Medical History Medical History: Hyperlipidemia; Hypertension; Pulmonary Embolism; Former Smoker. Cardiac Medications: None. Allergies: Epinephrine; Demerol; Nickel; Oxycontin; Percocet; Scopolamine. Cardiac Risk Factors: Family Hx; Hyperlipidemia; Hypertension; Former Smoker. Previous Cardiac Procedures: None. Pretest Chest Pain Characteristics: None. Exercise History: Indeterminate. Physical Disabilities: None. Lung Sounds: Clear bilaterally throughout, anterior and posterior. Heart Sounds: S1 and S2 auscultated. Stress Test Details Test: Exercise stress testing was performed using a Rashawn protocol. Nuclear Acquisition: Rest Tc-99m/Stress Tc-99m 1 day Rest Isotope: Tc-99m Sestamibi. Dose: 10.0 Date: 05/30/2024 Injection Time: 0850 Stress Isotope: Tc-99m Sestamibi. Dose: 30.0 Date: 05/30/2024 Injection Time: 1022 HR Resting HR Supine: 65 bpm Max Heart Rate (APMHR): 146.140311 bpm Resting HR Standin bpm Target HR (85% APMHR): 124.039990 bpm Max HR Achieved: 135 bpm % of APMHR: 92.47 Recovery HR: 75 bpm HR response to stress: Normal HR response to stress. BP Resting BP Supine: 166/86 mmHg Resting BP Standin/80 mmHg Max BP: 190/50 mmHg Recovery BP: 134/82 mmHg BP response to stress: Normal blood pressure response to stress. ECG Resting ECG: Sinus Rhythm. Ectopy: Rare PVC. Stress ECG: Sinus Tachycardia. ST Change: No significant ST segment changes noted. Arrhythmia: Occasional PAC's. Recovery ECG: Sinus Rhythm. Recovery ST Change: No significant ST segment changes noted. Recovery Arrhythmia: Frequent PAC's. Clinical Reason for Termination: Fatigue, Dyspnea, Dizziness, Target HR Achieved. Stress Symptoms: General Fatigue, Dyspnea, Dizziness. Exercise duration: 02 min41 sec Highest Stage Reached: Stage 1: 1.7 mph at 10% grade. Exercise capacity: 4.64 METs Angina Score: None Chauhan Treadmill Score: 2.7 Rate Pressure Product: 18002 Stress ECG Conclusion 1. Resting electrocardiogram was normal 2. Patient exercised on the Rashawn protocol and completed workload of 4.64 METS 3. Normal blood pressure response to exercise. accelerated heart rate response to exercise. The pa katerin achieved 92% of predicted heart rate for age 4. There was no electrocardiographic evidence of myocardial ischemia 5. Atrial premature beats were noted 6. See MPI report Chauhan Treadmill Score is 2.7 which is Moderate risk. Stress Test Summary STAGE Time (mins) Speed (mph) Grade (%) HR BP SpO2 SYMPTOMS METS Supine 65 166/86 95 Standing 71 150/80 95 1 3 1.7 10 135 97 Pt. c/o feeling lightheaded and moderately short of breath. 4.5 1 min recovery 109 190/50 95 Pt. c/o feeling lightheaded and moderately short of breath. 3 min recovery 78 170/92 96 Pt. c/o feeling mildly short of breath. 6 min recovery 75 134/82 97 Pt. denies any lightheadedness or shortness of breath. Pt. was conversing pleasantly with nursing staff upon leaving the Stress Lab. Pt. left ambulatory in no apparent distress. MPI Conclusion Myocardial perfusion is normal. There is no ischemia or evidence of prior infarction Ejection fraction is 69% with normal wall motion Radiologist Interpretation Radiologist Interpretation by: Jona Conteh MD Interpretation Date/Time: 05/30/2024 15:56:22
== END 2024-05-30 02:40 ==
LOC: DI 02:20
PROVIDERS: PCP Nurse Practitioner; Visit Provider Nurse Practitioner
DX: R06.09 Other forms of dyspnea (principal); G83.9 Paralytic syndrome, unspecified
CPT/HCPCS: 78452; 93016; 93018; 93017

== ENCOUNTER 2024-07-16 01:00 | Outpatient (CLI) | payer MEDICARE, OTHER, SELFPAY ==
--- NOTE | 2024-07-16 12:30 | DI.US_ITS ---
APPROVED REPORT EXAM: Comprehensive 2D, Doppler, and color-flow Echocardiogram Patient Location: Out-Patient [employer] Instructor: Lisa Garcia RDCS (AE) Indications: Mildly dilated ascending aorta Other Information Study Quality: Adequate Conclusion Normal left ventricular wall thickness and chamber size. Ejection fraction is 60%. Wall motion is n ormal Normal right ventricular size and function Both atria are normal in size There is no structural or hemodynamically significant valvular disease Estimated right ventricular systolic pressure is 32 mmHg Minimally dilated ascending aorta measuring 3.63 cm Wall motion Left Ventricle The left ventricle is normal size. The left ventricular systolic function is normal. The left ventric ular ejection fraction is within the normal range. There is normal left ventricular wall thickness. T here is normal LV segmental wall motion. There is no ventricular septal defect visualized. LVEF is 60 %. Right Ventricle The right ventricle is normal size. The right ventricular systolic function is normal. Atria The left atrium size is normal. The right atrium size is normal. The interatrial septum is intact wit h no evidence for an atrial septal defect. Aortic Valve The aortic valve is normal in structure. Aortic valve is trileaflet. There is no aortic valvular sten osis. No aortic regurgitation is present. Mitral Valve The mitral valve is normal in structure. Trace to mild mitral regurgitation. Tricuspid Valve The tricuspid valve is normal in structure. There is no tricuspid valve stenosis. Trace tricuspid reg urgitation. The RVSP is 31.6mmHg. Pulmonic Valve The pulmonary valve is normal in structure. There is no pulmonic valvular stenosis. There is no pulmo stan valvular regurgitation. Great Vessels The aortic root is normal in size. The ascending aorta is mildly dilated. Aortic arch is normal in ca liber. IVC is normal in size and collapses >50% with inspiration. Pericardium There is no pericardial effusion. 2D Dimensions IVSD d PLAX 1.01 cm F: 0.6-1.0 Ao Root d 2.85 cm F: 2.7 - 3.3 LVPW d PLAX 1.05 cm F: 0.6 - 1.0 Ao Asc Diam d 3.63 cm F: 2.3 - 3.1 LVID d PLAX 4.20 cm F: 3.8 - 5.2 LVDs 2.90 cm F: 2.2 - 3.5 LV EF Teichholz 57.8 % FS 30.07 % LV EDV (Teich) 76.4 mL LV ESV (Teich) 32.3 mL M-Mode TAPSE 2.77 cm (M/F) >1.7 Auto EF LV EDV A4C 93.7 mL LV EDV A2C 104.4 mL LV EDV BP 102.6 mL LV ESV A4C 37.0 mL LV ESV A2C 41.6 mL LV ESV BP 39.7 mL LVEF(%) A4C 60.5 % LVEF(%) A2C 60.2 % LVEF(%) BP 61.3 % LV SV A4C 56.7 ml LV SV A2C 62.8 ml LV SV BP 62.9 ml LV CO A4C 3.9 L/min LV CO A2C 5.0 L/min LV CO BP 4.5 L/min HR A4C 68.32 BPM HR A2C 80.36 BPM LV EDV Index (BP) LA Volume LA Length A4C 4.4 cm LA Length A2C 4.9 cm LA Area A4C s 16.73 cm2 LA Area A2C s 16.74 cm2 LA Vol A4C A-L 54.12 mL LA Vol A2C A-L 49.00 mL LA Vol Biplane A-L 54.1 mL LA Vol/BSA A4C A-L LA Vol/BSA A2C A-L LA Vol/BSA BP A-L 61.5 mL/m2 LA Vol A4C MOD 48.4 mL LA Vol A2C MOD 46.1 mL LA Vol BP MOD 49.3 mL RA Volume RA Area A4C 11.3 cm2 RA ESV A4C (A-L) 27.0mL RA Vol/BSA A4C A-L RA Length A4C 4.0 cm RA ESV A4C (MOD) 24.5mL LV Diastology MV E' medial 0.059 (>0.07 m/s) MV E Vmax 0.73 (0.4-1.3 m/s) MV E/E' MED 12.40 (<14) MV A Vmax 1.10 (0.4-1.3 m/s) MV E' lateral 0.087 (>0.1 m/s) E/A Ratio 0.7 MV E/E' LAT 8.35 (<14) MV E' Average 0.073 m/s MV E/E'(average) 9.98 Aortic Valve AoV Vmax 1.55 m/s LVOT Vmax 1.17 m/s AoV Peak Grad 9.6 mmHg LVOT Peak Grad 5.5 mmHg AoV Area (Vmax) 2.35 cm2 LVOT VTI 0.247 m AoV VTI 0.367 m LVOT Mean Grad 3.0 mmHg AoV Mean Daniel. 1.11 m/s LVOT SV 76.58 mL AoV Mean Grad 5.5 mmHg LVOT Diam s 1.95 cm AoV Area (VTI) 2.09 cm2 AV Regurg Peak Gr. 9.57 mmHg Velocity Ratio 0.75 Mitral Valve MV DT 302 (160-240 msec) MV Vmax TIPS 1.04 m/s MV Mean Grad 1.9 (<2mmHg) MV VTI 0.286 m Pulmonary Valve PV Vmax 0.98 (0.5-1.5 m/s) RVOT Vmax 0.95 m/s PV Peak Grad 3.9 mmHg RVOT Peak Gr. 3.6 mmHg PV Mean Daniel 0.76 m/s RVOT VTI 0.240 m PV Mean Grad 2.6 mmHg RVOT Mean Gr. 2.1 mmHg Tricuspid Valve RA Pressure 3.00 mmHg TR Vmax 2.67 m/s TV S' 0.16 m/s TR Peak Grad 28.6 mmHg RVSP (TR) 31.6 mmHg
== END 2024-07-16 01:20 ==
LOC: DI 01:00
PROVIDERS: PCP Nurse Practitioner; Visit Provider Nurse Practitioner
DX: I77.810 Thoracic aortic ectasia (principal)
CPT/HCPCS: 93306

== ENCOUNTER 2025-06-23 02:48 | Outpatient (CLI) | payer MEDICARE, OTHER, SELFPAY ==
--- NOTE | 2025-06-23 06:00 | DI.US_ITS ---
Exam(s) US AAA SCREENING EXAM: US AAA SCREENING CLINICAL HISTORY: 1st degree relative, brother, with AAA,screening for aaa,z82.49 COMPARISON: MR MR LUMBAR SPINE WO from 11/18/2020 US US ECHOCARDIOGRAM from 07/16/2024 FINDINGS: There is mild focal fusiform dilatation of the distal abdominal aorta which measures 2.4 cm at this level. There is lack of normal size tapering in the distal aorta. The proximal and mid abdominal aorta above this level measure 1.9-2.0 cm. Both visualized common iliac arteries measure upper normal size. 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 DATA REPOSITORY:
== END 2025-06-23 03:08 ==
LOC: DI 02:48
DX: Z13.6 Encounter for screening for cardiovascular disorders (principal); Z82.49 Family history of ischemic heart disease and other diseases of the circulatory system; I71.40 Abdominal aortic aneurysm, without rupture, unspecified
CPT/HCPCS: 76706

== ENCOUNTER 2025-06-27 04:42 | Outpatient (CLI) | payer MEDICARE, OTHER, SELFPAY ==
[2025-06-27 10:52] LABS: Anion Gap 3.1 mmol/L (3-11); BUN 18 mg/dL (7-18); CO2 34.9 mmol/L (21.0-32.0); Calcium 8.9 mg/dL (8.5-10.1); Chloride 105 mmol/L (98-107); Estimated GFR 76.79 (mL/min/1.73m2); Glucose 82 mg/dL (74-106); Potassium 4.5 mmol/L (3.5-5.1); Sodium 143 mmol/L (136-145)
[2025-06-30 09:38] LABS: Lyme Ab w Rflx to Lyme Confirm Negative (Negative)
[2025-06-30 15:55] LABS: B. miyamotoi PCR Negative (Negative); Babesia divergens/MO-1 Negative (Negative); Ehrlichia muris eauclairensis Negative (Negative)
== END 2025-06-27 04:43 | disposition home or self-care (01) ==
LOC: LBO 04:43
DX: I10 Essential (primary) hypertension (principal); M81.0 Age-related osteoporosis without current pathological fracture; W57.XXXA Bitten or stung by nonvenomous insect and other nonvenomous arthropods, initial encounter
CPT/HCPCS: 36415; 80048; 87798; 86618